=== PATIENT | female | born 1960 | race Caucasian/White ===

== ENCOUNTER 2016-03-09 12:45 | Inpatient (IN) | payer BC, OTHER ==
--- NOTE | 2016-03-09 13:25 | EDPRACDOC ---
- General Information Source: Patient - History of Present Illness Onset: YESTERDAY HPI: Pt states her R knee gave out yesterday and caused her to fall onto R side. C/o R shoulder to elbow pain, R hip and knee pain. Denies LOC, vision changes, n/v, neck or back pain, cp, sob, abd pain, loss of control bowel or bladder, wounds. Pain Severity: Reports: Moderate Injuries/Pain Location: Reports: upper extremity, lower extremity Reason for Fall: Reports: lost balance Loss of Consciousness: no loss of consciousness Modifying Factors: improves with: movement Associated Symptoms (Fall): Reports: denies symptoms <Kaitlynn Waller - Last Filed: 03/09/16 16:25> <Nura Wolf - Last Filed: 03/09/16 17:29> - General Chief Complaint: Fall Stated Complaint: FELL YESTERDAY PAIN IN RT ARM Time Seen by Provider: 03/09/16 13:16 - History of Present Illness Allergies/Adverse Reactions: Allergies No Known Allergies Allergy (Verified 03/09/16 13:16) Home Medications: Ambulatory Orders Albuterol Sulfate [Ventolin] 3 ml NEB Q2H PRN #60 nebu 12/18/15 Albuterol/Ipratropium Neb [Duoneb] 3 ml NEB RTQ6 #120 nebu 12/18/15 Budesonide [Pulmicort] 0.5 mg NEB RTBID #60 nebu 12/18/15 Diltiazem HCl [Cardizem Cd] 120 mg PO DAILY #30 cap.sr.24h 12/18/15 Furosemide [Lasix] 40 mg PO DAILY #30 tablet 12/18/15 Magnesium Oxide [Mag-Ox] 400 mg PO TIDWM #90 tablet 12/18/15 POTASSIUM CHLORIDE Tablet [K-DUR 20 mEq Tablet*] 20 meq PO TIDWM #90 tab.er.prt 12/18/15 Thiamine [Thiamine, Vitamin B-1] 100 mg PO DAILY@1200 #30 tablet 12/18/15 Lisinopril/Hydrochlorothiazide [Lisinopril-Hctz 10-12.5 mg Tab] 1 tab PO DAILY 03/09/16 Mirtazapine 15 mg PO HS 03/09/16 ED Past Medical History - History Reviewed Yes Nurses notes reviewed and agree except as marked - Patient Medical History Cardiac History: Reports: Hypertension Respiratory History: Reports: COPD GI/ History: Reports: Kidney Stones Psychological History: Denies: Depression, Substance Use Disorder Systemic History: Denies: Cancer Surgical History: Reports: Other (Repair of fractured wrist) - Family Medical History Reports: Hypertension (MOM), Diabetes (DAD), Cardiac Disorders (MOM). Denies: Cancer, Stroke - Social Medical History Smoking Status: Heavy tobacco smoker (5 or more cigarettes/day or daily pipe/ cigar) Social History: Denies: Substance Use Disorder ETOH: None Substance Abuse: None <Kaitlynn Waller - Last Filed: 03/09/16 16:25> EDM Review of Systems - Review of Systems Constitutional: No Symptoms Reported. negative: Fever, Chills, Weakness, Fatigue, Loss of Appetite Eyes: No Symptoms Reported. negative: Redness, Blurred Vision, Double Vision, Discharge, Pain, Light Sensitive, Photophobia Respiratory: No Symptoms Reported. negative: Cough, Brassy Cough, Barky Cough, Shortness of Breath, Wheezing, Hemoptysis Cardiovascular: No Symptoms Reported. negative: Chest Pain, Palpitations, Syncope, Edema, Orthopnea, PND, Skin Mottling, Cyanosis Gastrointestinal: No Symptoms Reported. negative: Pain, Constipation, Nausea, Vomiting, Diarrhea, Melena, Formula Intolerance Genitourinary: No Symptoms Reported. negative: Dysuria, Hematuria, Frequency, Discharge, Bleeding, Testicular Pain, Neurological: No Symptoms Reported. negative: Headache, Dizziness, Seizure, Numbness, Weakness, Speech Difficulty, Gait Difficulty Musculoskeletal: Arm, Elbow, Hip, Knee, Shoulder Integumentary: No Symptoms Reported. negative: Itching, Rash, Bruising, Wound Allergic/Immunologic: No Symptoms Reported. negative: Hives, Itching Hematologic: No Symptoms Reported. negative: Lymphadenopathy, Easy Bruising, Easy Bleeding Psychiatric: No Symptoms Reported. negative: Anxiety, Depression, Hallucinations, Insomnia, Suicidal <Kaitlynn Waller Phani - Last Filed: 03/09/16 16:25> - Physical Exam Constitutional: Alert Oriented to: Time, Person, Place Last recorded Vital Signs: Last Vital Signs Temp 97.4 F L 03/09/16 12:58 Pulse 107 03/09/16 12:58 Resp 16 03/09/16 12:58 BP 109/67 03/09/16 12:58 Pulse Ox 92 03/09/16 12:58 Oxygen Pulse Oxygen Saturation 92 O2 Device Room Air Oxygen Flow Rate Fraction of Inspired Oxygen ( FIO2) - HEENT Head: Normal ( normocephalic) Eye Exam: Normal (PERRL, EOMI, Sclera white) Neck: Normal (FROM, trachea at midline) - Respiratory/Cardiovascular Respiratory: Normal - CTA (BBS clear to auscultation without adventitious sounds ) Cardiovascular: Normal (RRR without murmur, gallop or rub) - GI Auscultation: Normal (NABS) Palpation: Normal (Soft,No rebound or guarding, non distended) Tenderness: Non tender, Other (no ruq or luq tenderness) Carlson's Sign: Negative - Musculoskeletal Back: Normal (Non-Tender) Extremities: Normal (Normal tone, Pulses 2+ No cyanosis or edema, FROM) - Integumentary Skin: Normal, Warm, Dry Lymphatics: Normal (no adenopathy) - Neurologic Memory Impaired: Normal Motor Function: Normal (Normal tone, Pulses 2+ No cyanosis or edema, FROM) Mood Description: Normal Perception: Normal <Kaitlynn Waller - Last Filed: 03/09/16 16:25> - Physical Exam Last recorded Vital Signs: Last Vital Signs Temp 97.4 F L 03/09/16 12:58 Pulse 87 03/09/16 16:24 Resp 18 03/09/16 16:24 BP 123/58 L 03/09/16 16:24 Pulse Ox 98 03/09/16 16:26 Oxygen Pulse Oxygen Saturation 98 O2 Device Nasal Cannula Oxygen Flow Rate Fraction of Inspired Oxygen ( 2 FIO2) <Nura Wolf - Last Filed: 03/09/16 17:29> ED Injury/Fall Exam - Physical Exam Head Injury: no evidence of injury Extremity Exam: pain with movement (R shoulder, elbow, hip and knee) Skin: Normal, Warm, Dry - [place] Coma Score Best Eye Response ([place]): (4) open spontaneously Best Verbal Response ([place]): (5) oriented Best Motor Response ([place]): (6) obeys commands [place] Total: 15 <Kaitlynn Waller - Last Filed: 03/09/16 16:25> ED Procedures - Splinting 1st splint Location: r elbow Hand-Made Type: orthoglass Splint: posterior long arm Pre-Proc Neuro Vasc Exam: normal Post-Proc Neuro Vasc Exam: normal Other Devices: Sling <Kaitlynn Waller E - Last Filed: 03/09/16 16:25> - Differential Diagnosis Contusion, Fracture, Mechanical Fall, Sprain, Strain - Results 03/09/16 15:14 03/09/16 15:14 03/09/16 15:41 Laboratory Results - last 24 hr 03/09/16 03/09/16 03/09/16 15:14 15:14 15:14 WBC 7.8 RBC 3.57 L Hgb 11.3 L Hct 32.8 L MCV 92 MCH 31.7 MCHC 34.5 RDW 14.3 Plt Count 285 MPV 6.7 L Neut % (Auto) 70.4 Lymph % (Auto) 13.1 L [place] % (Auto) 15.1 H Eos % (Auto) 0.4 Baso % (Auto) 1.0 Absolute Neuts (auto) 5.46 Absolute Lymphs (auto) 1.01 PT 10.1 INR 1.0 APTT 28.5 Sodium 119 L* Potassium 3.3 L Chloride 79 L Carbon Dioxide 30 Anion Gap 13 BUN 10 Creatinine 0.40 L Estimated GFR (MDRD) > 60 Glucose 103 H Calculated Osmolality 229 L Calcium 9.7 Total Bilirubin 0.9 AST 29 ALT 32 Alkaline Phosphatase 141 H Total Protein 7.6 Albumin 4.3 Urine Color Urine Clarity Urine pH Ur Specific [place] Urine Protein Urine Glucose (UA) Urine Ketones Urine Occult Blood Urine Nitrite Urine Bilirubin Urine Urobilinogen Ur Leukocyte Esterase Urine RBC Urine WBC Ur Epithelial Cells Hyaline Casts Urine Mucus 03/09/16 15:20 WBC RBC Hgb Hct MCV MCH MCHC RDW Plt Count MPV Neut % (Auto) Lymph % (Auto) [place] % (Auto) Eos % (Auto) Baso % (Auto) Absolute Neuts (auto) Absolute Lymphs (auto) PT INR APTT Sodium Potassium Chloride Carbon Dioxide Anion Gap BUN Creatinine Estimated GFR (MDRD) Glucose Calculated Osmolality Calcium Total Bilirubin AST ALT Alkaline Phosphatase Total Protein Albumin Urine Color Yellow Urine Clarity Sl cldy Urine pH 5.0 Ur Specific [place] 1.005 Urine Protein Neg Urine Glucose (UA) Neg Urine Ketones Neg Urine Occult Blood Neg Urine Nitrite Neg Urine Bilirubin Neg Urine Urobilinogen <2.0 Ur Leukocyte Esterase Neg Urine RBC 0-2 Urine WBC 2-5 Ur Epithelial Cells 4+ Hyaline Casts 0-2 Urine Mucus Occ - EKG EKG #1 EKG Time: 16:01 Rate: bpm: 84 [place]: Normal Rhythm: NSR Block: None ST: Nons[facility] - Diagnostic Imaging Shoulder Image interpreted by: Radiologist IMPRESSION: Mildly comminuted right humeral neck fracture extending into the head. No evidence of dislocation. Knee Image interpreted by: Radiologist IMPRESSION: Negative. Other Image interpreted by: Radiologist IMPRESSION: Minimally displaced right humeral neck fracture. Fracture through the olecranon process of the proximal ulna. Hip Image interpreted by: Radiologist IMPRESSION: Acute high right superior ramus/medial acetabular fracture. Osteopenia CT: IMPRESSION: Fracture through the right ischium near the medial acetabulum. It is difficult to confirm involvement of the acetabulum. Nondisplaced fracture also through the right inferior pubic ramus. Small amount of extraperitoneal stranding compatible with hematoma lateral to the anterior bladder. Small low-density areas within the adductor muscles of the right hip compatible with intramuscular hematomas. Elbow Image interpreted by: Radiologist IMPRESSION: Displaced olecranon process fracture. <Kaitlynn Waller E - Last Filed: 03/09/16 16:25> - Results 03/09/16 15:14 03/09/16 15:14 WBC 7.8 xk/uL (3.8-10.8) 03/09/16 15:14 RBC 3.57 xM/uL (4.20-5.40) L 03/09/16 15:14 Hgb 11.3 g/dL (12.0-16.0) L 03/09/16 15:14 Hct 32.8 % (36-47) L 03/09/16 15:14 MCV 92 fL (81-99) 03/09/16 15:14 MCH 31.7 pg (27-32) 03/09/16 15:14 MCHC 34.5 g/dl (33-36) 03/09/16 15:14 RDW 14.3 % (11.5-14.5) 03/09/16 15:14 Plt Count 285 xk/uL (130-400) 03/09/16 15:14 MPV 6.7 fL (7.4-10.4) L 03/09/16 15:14 Neut % (Auto) 70.4 % (45-76) 03/09/16 15:14 Lymph % (Auto) 13.1 % (17-44) L 03/09/16 15:14 [place] % (Auto) 15.1 % (3-10) H 03/09/16 15:14 Eos % (Auto) 0.4 % (0-5) 03/09/16 15:14 Baso % (Auto) 1.0 % (0-2) 03/09/16 15:14 Absolute Neuts (auto) 5.46 xk/uL (1.7-8.2) 03/09/16 15:14 Absolute Lymphs (auto) 1.01 xk/uL (0.65-4.75) 03/09/16 15:14 PT 10.1 SEC (9.2-11.2) 03/09/16 15:14 INR 1.0 03/09/16 15:14 APTT 28.5 SEC (22-35) 03/09/16 15:14 Sodium 119 mEq/L (137-146) L* 03/09/16 15:14 Potassium 3.3 mEq/L (3.5-5.1) L 03/09/16 15:14 Chloride 79 mEq/L (98-107) L 03/09/16 15:14 Carbon Dioxide 30 mMOL/L (22-33) 03/09/16 15:14 Anion Gap 13 mEq/L (8-16) 03/09/16 15:14 BUN 10 MG/DL (7-17) 03/09/16 15:14 Creatinine 0.40 MG/DL (0.52-1.04) L 03/09/16 15:14 Estimated GFR (MDRD) > 60 mL/min (>=60) 03/09/16 15:14 Glucose 103 MG/DL (70-99) H 03/09/16 15:14 Calculated Osmolality 229 MOs/Kg (270-290) L 03/09/16 15:14 Calcium 9.7 MG/DL (8.4-10.2) 03/09/16 15:14 Total Bilirubin 0.9 MG/DL (0.2-1.3) 03/09/16 15:14 AST 29 IU/L (14-36) 03/09/16 15:14 ALT 32 IU/L (9-52) 03/09/16 15:14 Alkaline Phosphatase 141 IU/L (38-126) H 03/09/16 15:14 Total Protein 7.6 G/DL (6.3-8.2) 03/09/16 15:14 Albumin 4.3 G/DL (3.5-5.0) 03/09/16 15:14 Urine Color Yellow 03/09/16 15:20 Urine Clarity Sl cldy 03/09/16 15:20 Urine pH 5.0 (5.0-8.0) 03/09/16 15:20 Ur Specific [place] 1.005 (1.003-1.035) 03/09/16 15:20 Urine Protein Neg (NEG/TRACE) 03/09/16 15:20 Urine Glucose (UA) Neg (NEGATIVE) 03/09/16 15:20 Urine Ketones Neg (NEGATIVE) 03/09/16 15:20 Urine Occult Blood Neg (NEG/TRACE) 03/09/16 15:20 Urine Nitrite Neg (NEGATIVE) 03/09/16 15:20 Urine Bilirubin Neg (NEGATIVE) 03/09/16 15:20 Urine Urobilinogen <2.0 MG/DL (0-1) 03/09/16 15:20 Ur Leukocyte Esterase Neg (NEGATIVE) 03/09/16 15:20 Urine RBC 0-2 (0-5) 03/09/16 15:20 Urine WBC 2-5 (0-5) 03/09/16 15:20 Ur Epithelial Cells 4+ 03/09/16 15:20 Hyaline Casts 0-2 (0-2) 03/09/16 15:20 Urine Mucus Occ (NEG/OCC) 03/09/16 15:20 Lab Results 03/09/16 03/09/16 03/09/16 15:20 15:14 15:14 WBC 7.8 RBC 3.57 L Hgb 11.3 L Hct 32.8 L MCV 92 MCH 31.7 MCHC 34.5 RDW 14.3 Plt Count 285 MPV 6.7 L Neut % (Auto) 70.4 Lymph % (Auto) 13.1 L [place] % (Auto) 15.1 H Eos % (Auto) 0.4 Baso % (Auto) 1.0 Absolute Neuts (auto) 5.46 Absolute Lymphs (auto) 1.01 PT 10.1 INR 1.0 APTT 28.5 Sodium Potassium Chloride Carbon Dioxide Anion Gap BUN Creatinine Estimated GFR (MDRD) Glucose Calculated Osmolality Calcium Total Bilirubin AST ALT Alkaline Phosphatase Total Protein Albumin Urine Color Yellow Urine Clarity Sl cldy Urine pH 5.0 Ur Specific [place] 1.005 Urine Protein Neg Urine Glucose (UA) Neg Urine Ketones Neg Urine Occult Blood Neg Urine Nitrite Neg Urine Bilirubin Neg Urine Urobilinogen <2.0 Ur Leukocyte Esterase Neg Urine RBC 0-2 Urine WBC 2-5 Ur Epithelial Cells 4+ Hyaline Casts 0-2 Urine Mucus Occ 03/09/16 15:14 WBC RBC Hgb Hct MCV MCH MCHC RDW Plt Count MPV Neut % (Auto) Lymph % (Auto) [place] % (Auto) Eos % (Auto) Baso % (Auto) Absolute Neuts (auto) Absolute Lymphs (auto) PT INR APTT Sodium 119 L* Potassium 3.3 L Chloride 79 L Carbon Dioxide 30 Anion Gap 13 BUN 10 Creatinine 0.40 L Estimated GFR (MDRD) > 60 Glucose 103 H Calculated Osmolality 229 L Calcium 9.7 Total Bilirubin 0.9 AST 29 ALT 32 Alkaline Phosphatase 141 H Total Protein 7.6 Albumin 4.3 Urine Color Urine Clarity Urine pH Ur Specific [place] Urine Protein Urine Glucose (UA) Urine Ketones Urine Occult Blood Urine Nitrite Urine Bilirubin Urine Urobilinogen Ur Leukocyte Esterase Urine RBC Urine WBC Ur Epithelial Cells Hyaline Casts Urine Mucus <Nura Wolf - Last Filed: 03/09/16 17:29> - Departure Disposition: Admit IP To This Hospital Education/Counseling Given To: Patient, Family Member Education/Counseling Given Regarding: Diagnosis, Treatment <Kaitlynn Waller - Last Filed: 03/09/16 16:25> - Departure Yes I personally saw and evaluated the patient. Decision to Admit Time: 17:29 Decision to admit date: 03/09/16 Decision to admit: from ED - Physician Consulted Orthopedics Time Called: 17:27 Provider Called: Kenneth Artis Time [place] [employer] Returned Call: 17:27 Hospitalist Time Called: 17:28 (DR CARRASQUILLO- TALK TO DR. PATIÑO) Provider Called: Luiz Patiño Time [place] [employer] Returned Call: 18:00 <Nura Wolf - Last Filed: 03/09/16 17:29> - Departure Condition: Stable Final Diagnosis: Hyponatremia, Weakness Right humeral fracture Qualifiers: Encounter type: initial encounter Humerus Location: proximal Fracture type: closed Fracture morphology: other fracture Fracture alignment: displaced Qualified Code(s): S42.291A - Other displaced fracture of upper end of right humerus, initial encounter for closed fracture Closed olecranon fracture Qualifiers: Encounter type: initial encounter Laterality: right Qualified Code(s): S52.021A - Displaced fracture of olecranon process without intraarticular extension of right ulna, initial encounter for closed fracture Fracture of right inferior pubic ramus Qualifiers: Encounter type: initial encounter Fracture type: closed Qualified Code(s): S32.591A - Other specified fracture of right pubis, initial encounter for closed fracture Right ischial fracture Qualifiers: Encounter type: initial encounter Fracture type: closed Fracture morphology: unspecified fracture morphology Fracture alignment: nondisplaced Qualified Code( s): S32.601A - Unspecified fracture of right ischium, initial encounter for closed fracture Instructions: RICE: Routine Care for Injuries Referrals: Freddy Miguel II, MD [Primary Care Provider] - One Week Prescriptions: No Action Albuterol Sulfate [Ventolin] 3 ml NEB Q2H PRN #60 nebu PRN Reason: Wheezing Albuterol/Ipratropium Neb [Duoneb] 3 ml NEB RTQ6 #120 nebu Budesonide [Pulmicort] 0.5 mg NEB RTBID #60 nebu Diltiazem HCl [Cardizem Cd] 120 mg PO DAILY #30 cap.sr.24h Furosemide [Lasix] 40 mg PO DAILY #30 tablet Magnesium Oxide [Mag-Ox] 400 mg PO TIDWM #90 tablet POTASSIUM CHLORIDE Tablet [K-DUR 20 mEq Tablet*] 20 meq PO TIDWM #90 tab.er.prt Thiamine [Thiamine, Vitamin B-1] 100 mg PO DAILY@1200 #30 tablet Lisinopril/Hydrochlorothiazide [Lisinopril-Hctz 10-12.5 mg Tab] 1 tab PO DAILY Mirtazapine 15 mg PO HS
[2016-03-09] MEDS ORDERED: OXYCODONE HCL 5 MG TABLET PO ONE (14:09)
--- NOTE | 2016-03-09 14:16 | DIRPT ---
CLINICAL DATA: Fell from standing yesterday. Right elbow pain. EXAM: RIGHT ELBOW - COMPLETE 3+ VIEW COMPARISON: None. FINDINGS: There is a fracture through the olecranon process of the right elbow. Fracture fragment is displaced 15 mm. Large joint effusion. IMPRESSION: Displaced olecranon process fracture. Electronically Signed By: Arik Lara M.D. On: 03/09/2016 14:13
--- NOTE | 2016-03-09 14:18 | DIRPT ---
CLINICAL DATA: fall yesterday. Right arm pain. EXAM: RIGHT HUMERUS - 2+ VIEW COMPARISON: None FINDINGS: There is a fracture through the right humeral neck. Minimal displacement. No subluxation or dislocation. Fracture again noted through the olecranon process at the right elbow. IMPRESSION: Minimally displaced right humeral neck fracture. Fracture through the olecranon process of the proximal ulna. Electronically Signed By: Arik Lara M.D. On: 03/09/2016 14:15
--- NOTE | 2016-03-09 14:18 | DIRPT ---
CLINICAL DATA: Acute right knee pain following fall yesterday. Initial encounter. EXAM: RIGHT KNEE - COMPLETE 4+ VIEW COMPARISON: None. FINDINGS: There is no evidence of fracture, dislocation, or joint effusion. There is no evidence of arthropathy or other focal bone abnormality. Soft tissues are unremarkable. IMPRESSION: Negative. Electronically Signed By: Olu Moya M.D. On: 03/09/2016 14:16
--- NOTE | 2016-03-09 14:21 | DIRPT ---
CLINICAL DATA: Fall, right hip pain EXAM: RIGHT HIP (WITH PELVIS) 2-3 VIEWS COMPARISON: 03/09/2016 FINDINGS: There is an acute minimally displaced high right superior ramus fracture along the medial acetabulum. Remainder of the bony pelvis appears intact. Hips are symmetric. Right hip appears located and intact. No associated hip fracture or malalignment. Bones are osteopenic. Normal SI joints and bowel gas pattern. IMPRESSION: Acute high right superior ramus/medial acetabular fracture. Osteopenia Electronically Signed By: Oliva Daniels M.D. On: 03/09/2016 14:18
--- NOTE | 2016-03-09 14:21 | DIRPT ---
CLINICAL DATA: Acute right shoulder pain following fall yesterday. Initial encounter. EXAM: RIGHT SHOULDER - 2+ VIEW COMPARISON: 12/16/2015 chest radiograph FINDINGS: A mildly comminuted fracture of the right humeral neck extending into the head noted. There is 3-4 mm anterior displacement. There is no evidence of dislocation. No focal bony lesions are present. A remote right ninth rib fracture is present. IMPRESSION: Mildly comminuted right humeral neck fracture extending into the head. No evidence of dislocation. Electronically Signed By: Olu Moya M.D. On: 03/09/2016 14:18
[2016-03-09] MEDS ORDERED: ONDANSETRON HCL 4 MG/2 ML VIAL IV ONE (14:34)
[2016-03-09] MEDS ORDERED: MORPHINE 4 MG/ML INJECTION IV ONE (14:34)
--- NOTE | 2016-03-09 15:20 | DIRPT ---
CLINICAL DATA: Acetabular fracture EXAM: CT OF THE LOWER RIGHT EXTREMITY WITHOUT CONTRAST TECHNIQUE: Multidetector CT imaging of the right hip was performed according to the standard protocol. COMPARISON: Plain films earlier today FINDINGS: There Is an essentially nondisplaced fracture through the right ischium. It is difficult to confirm definite involvement of the acetabulum. Fracture is best seen on coronal imaging. In addition, there is stranding noted in the extraperitoneal space to the right of the bladder near the ischium compatible with small hematoma. There are low-density fluid collections within the hip adductor muscles, likely small intramuscular hematomas. Fracture through the inferior pubic ramus as well.There no subluxation or dislocation. IMPRESSION: Fracture through the right ischium near the medial acetabulum. It is difficult to confirm involvement of the acetabulum. Nondisplaced fracture also through the right inferior pubic ramus. Small amount of extraperitoneal stranding compatible with hematoma lateral to the anterior bladder. Small low-density areas within the adductor muscles of the right hip compatible with intramuscular hematomas. Electronically Signed By: Arik Lara M.D. On: 03/09/2016 15:17
[2016-03-09 15:23] LABS: AUTOMATED EOSINOPHIL 0.4 % (0-5); AUTOMATED LYMPH 13.1 % (17-44); AUTOMATED MONOCYTE 15.1 % (3-10); AUTOMATED NEUTROPHIL 70.4 % (45-76); MPV 6.7 fL (7.4-10.4)
[2016-03-09 15:33] LABS: BLOOD UREA NITROGEN 10 MG/DL (7-17); CALCIUM 9.7 MG/DL (8.4-10.2); CALCULATED OSMOLALITY 229 MOs/Kg (270-290); CHLORIDE 79 mEq/L (98-107); GLUCOSE 103 MG/DL (70-99); TOTAL PROTEIN 7.6 G/DL (6.3-8.2)
[2016-03-09 15:33] LABS: LEUKOCYTES/URINE NEG (NEGATIVE); NITRITE/URINE NEG (NEGATIVE); RBC/URINE 0-2 (0-5); URINE OCCULT BLOOD NEG (NEG/TRACE)
[2016-03-09 15:37] LABS: SODIUM LEVEL 119 mEq/L (137-146)
[2016-03-09 15:38] LABS: PARTIAL THROMB. TIME 28.5 SEC (22-35)
[2016-03-09] MEDS ORDERED: NS 1,000 ML IV ONE (15:42)
[2016-03-09] MEDS ORDERED: MORPHINE 2 MG/ML INJECTION IV PRN (18:37)
--- NOTE | 2016-03-09 18:54 | HISTPHYS ---
- Chief Complaint fall with pain - History of Present Illness PRIMARY CARE PROVIDER: HPI: The patient is a 55-year-old woman with mild COPD suffered a fall yesterday, , and presents with pain today. She was walking down the steps to feed her dog when she fell down the steps onto her right side yesterday. She had to crawl because she could not walk. She stayed home yesterday hoping that she would get better, but when the pain continued today, she presented to the emergency department. She reports she does drink alcohol about 3 times per week but denies that she is an alcoholic. She states she did not drink before her fall, but reports she did drink after the fall to help with the pain. Onset: yesterday. Duration: intermittent. Location: right arm, right elbow, right pelvis. Radiation: none. Character: 10. Dull ache. Alleviated by: Nothing. Exacerbated by: Nothing. Associated Symptoms: No numbness or weakness. No headache. Generalized weakness and fatigue. Shortness of breath is minimal. Occasional wheezing. No coughing. No chest pain or palpitations. Treatments: none at home except usual medications. The patient has known mild hyponatremia, but in the emergency department her Na level was found to be 119. She was also found to have multiple fractures, including the right shoulder, right elbow, and right pelvis. - Medical History Cardiac History: Reports: Hypertension Respiratory History: Reports: COPD (does not use inhalers.) GI/ History: Reports: Kidney Stones Systemic History: Denies: Cancer Psychological History: Denies: Depression, Substance Use Disorder - Surgical History Reports: Other (Repair of fractured wrist) - Medictions/Allergies Allergies No Known Allergies Allergy (Verified 03/09/16 13:16) Current Medication List: Reviewed Home Medications Albuterol Sulfate [Ventolin] 3 ml NEB Q2H PRN #60 nebu 12/18/15 Albuterol/Ipratropium Neb [Duoneb] 3 ml NEB RTQ6 #120 nebu 12/18/15 Budesonide [Pulmicort] 0.5 mg NEB RTBID #60 nebu 12/18/15 Diltiazem HCl [Cardizem Cd] 120 mg PO DAILY #30 cap.sr.24h 12/18/15 Furosemide [Lasix] 40 mg PO DAILY #30 tablet 12/18/15 Magnesium Oxide [Mag-Ox] 400 mg PO TIDWM #90 tablet 12/18/15 POTASSIUM CHLORIDE Tablet [K-DUR 20 mEq Tablet*] 20 meq PO TIDWM #90 tab.er.prt 12/18/15 Thiamine [Thiamine, Vitamin B-1] 100 mg PO DAILY@1200 #30 tablet 12/18/15 Lisinopril/Hydrochlorothiazide [Lisinopril-Hctz 10-12.5 mg Tab] 1 tab PO DAILY 03/09/16 Mirtazapine 15 mg PO HS 03/09/16 - Family History Reports: Hypertension (MOM), Diabetes (DAD), Cardiac Disorders (MOM). Denies: Cancer, Stroke - Social History Smoking Status: Former smoker (quit 12/2015. Previously 1 ppd.) Social History: Reports: Alcohol Use. Denies: Substance Use Disorder Drinks 3 times per week. Denies that she has a problem with alcohol. - Review of Systems GENERAL: No Fever, chills, or diaphoresis. Positive for fatigue/malaise. HEENT: No nasal discharge or bleeding. No throat pain or swelling. No eye pain or eye redness. RESPIRATORY: No cough. Mild intermittent wheezing, minimal shortness of breath. CARDIOVASCULAR: No chest pain or palpitations. GI: No abdominal pain, nausea, vomiting, diarrhea, constipation, or bloody stool. NEUROLOGICAL: No headache or focal weakness. INTEGUMENT: no rashes, itching, or lesions. LYMPHATIC SYSTEM: no lymph node swelling or pain. MUSCULOSKELETAL: See HPI; otherwise, no new pain or joint swelling. GENITOURINARY: No dysuria or hematuria. ENDOCRINE: No polyuria or polydipsia. HEME: No chronic anemia, bleeding, or easy bruising. - Physical Exam Vital Signs: Initial Vitals Temperature 97.4 F L 03/09/16 12:58 Pulse Rate 107 03/09/16 12:58 Respiratory Rate 16 03/09/16 12:58 Blood Pressure 109/67 03/09/16 12:58 Pulse Oxygen Saturation 92 03/09/16 12:58 Vital Signs - 24 hr 03/09/16 03/09/16 03/09/16 12:58 16:24 16:26 Temperature 97.4 F L Pulse Rate 107 87 Respiratory 16 18 Rate Blood Pressure 109/67 123/58 L Pulse Oxygen 92 87 L 98 Saturation Weight: 45.6 kg Height: 5 feet 4 inches BMI: 17.3 - Other Exam Other Exam Findings: GENERAL: Ill-appearing, well nourished, in acute distress. HEENT: Normocephalic, atraumatic; pupils equal and round. Nares patent, without discharge or bleeding. No oropharyngeal lesions or erythema. Mucous membranes are dry. NECK: is supple, no masses, trachea midline. RESPIRATORY: Clear to auscultation bilaterally. Chest wall movements are symmetric. No use of accessory muscles to breathe. No rales, rhonchi. Wheezing noted. CARDIOVASCULAR: Normal S1, S2. Murmur 3/6 systolic. No rubs, or gallops. PMI non -displaced. Carotids: no carotid bruits. No bradycardia or tachycardia. DP pulses 2+ bilaterally. GI: soft, nontender, non-distended, normal active bowel sounds. No hepatosplenomegaly. INTEGUMENT: Clean, dry, and intact. No rashes. MUSCULOSKELETAL: No cyanosis. No clubbing. Edema: none bilaterally. RUE: bandaged in splint. tender at right shoulder and right elbow. NEUROLOGICAL: Cranial nerves 2-12 grossly intact. Motor 5/5 in left upper and lower extremity. Right upper extremity not tested due to fracture. Right lower extremity at least 3/5. Reflexes: 2+ bilaterally. Babinski: toes downgoing bilaterally. Intact Finger to nose. Sensory grossly intact to light touch. Intact rapid alternating movements bilaterally. No pronator drift. PSYCHIATRIC: Fully oriented. Normal and appropriate affect. LYMPHATIC: No cervical lymphadenopathy. No supraclavicular lymphadenopathy. - Lab Results Laboratory Results - last 24 hr 03/09/16 03/09/16 03/09/16 15:14 15:14 15:14 WBC 7.8 RBC 3.57 L Hgb 11.3 L Hct 32.8 L MCV 92 MCH 31.7 MCHC 34.5 RDW 14.3 Plt Count 285 MPV 6.7 L Neut % (Auto) 70.4 Lymph % (Auto) 13.1 L [place] % (Auto) 15.1 H Eos % (Auto) 0.4 Baso % (Auto) 1.0 Absolute Neuts (auto) 5.46 Absolute Lymphs (auto) 1.01 PT 10.1 INR 1.0 APTT 28.5 Sodium 119 L* Potassium 3.3 L Chloride 79 L Carbon Dioxide 30 Anion Gap 13 BUN 10 Creatinine 0.40 L Estimated GFR (MDRD) > 60 Glucose 103 H Calculated Osmolality 229 L Calcium 9.7 Total Bilirubin 0.9 AST 29 ALT 32 Alkaline Phosphatase 141 H Total Protein 7.6 Albumin 4.3 Urine Color Urine Clarity Urine pH Ur Specific [place] Urine Protein Urine Glucose (UA) Urine Ketones Urine Occult Blood Urine Nitrite Urine Bilirubin Urine Urobilinogen Ur Leukocyte Esterase Urine RBC Urine WBC Ur Epithelial Cells Hyaline Casts Urine Mucus 03/09/16 15:20 WBC RBC Hgb Hct MCV MCH MCHC RDW Plt Count MPV Neut % (Auto) Lymph % (Auto) [place] % (Auto) Eos % (Auto) Baso % (Auto) Absolute Neuts (auto) Absolute Lymphs (auto) PT INR APTT Sodium Potassium Chloride Carbon Dioxide Anion Gap BUN Creatinine Estimated GFR (MDRD) Glucose Calculated Osmolality Calcium Total Bilirubin AST ALT Alkaline Phosphatase Total Protein Albumin Urine Color Yellow Urine Clarity Sl cldy Urine pH 5.0 Ur Specific [place] 1.005 Urine Protein Neg Urine Glucose (UA) Neg Urine Ketones Neg Urine Occult Blood Neg Urine Nitrite Neg Urine Bilirubin Neg Urine Urobilinogen <2.0 Ur Leukocyte Esterase Neg Urine RBC 0-2 Urine WBC 2-5 Ur Epithelial Cells 4+ Hyaline Casts 0-2 Urine Mucus Occ - Diagnostic Findings EK beats per minute. Normal sinus rhythm. Nonspecific ST abnormality. Minimal ST depression in lead V4. Reviewed EKG personally. Chest x-ray, viewed personally: EXAM: PORTABLE CHEST 1 VIEW COMPARISON: Chest radiograph 12/16/2015. FINDINGS: Stable cardiac and mediastinal contours. Unchanged diffuse bilateral coarse opacities. No large area of pulmonary consolidation. No pleural effusion or pneumothorax. Re- demonstrated proximal comminuted right humerus fracture. IMPRESSION: Grossly unchanged bilateral interstitial pulmonary opacities. Comminuted proximal right humerus fracture. RIGHT Elbow x-ray: EXAM: RIGHT ELBOW - COMPLETE 3+ VIEW COMPARISON: None. FINDINGS: There is a fracture through the olecranon process of the right elbow. Fracture fragment is displaced 15 mm. Large joint effusion. IMPRESSION: Displaced olecranon process fracture. RIGHT Humerus x-ray: EXAM: RIGHT HUMERUS - 2+ VIEW COMPARISON: None FINDINGS: There is a fracture through the right humeral neck. Minimal displacement. No subluxation or dislocation. Fracture again noted through the olecranon process at the right elbow. IMPRESSION: Minimally displaced right humeral neck fracture. Fracture through the olecranon process of the proximal ulna. RIGHT Shoulder x-ray: EXAM: RIGHT SHOULDER - 2+ VIEW COMPARISON: 12/16/2015 chest radiograph FINDINGS: A mildly comminuted fracture of the right humeral neck extending into the head noted. There is 3-4 mm anterior displacement. There is no evidence of dislocation. No focal bony lesions are present. A remote right ninth rib fracture is present. IMPRESSION: Mildly comminuted right humeral neck fracture extending into the head. No evidence of dislocation. RIGHT Hip pelvis x-ray: EXAM: RIGHT HIP (WITH PELVIS) 2-3 VIEWS COMPARISON: 03/09/2016 FINDINGS: There is an acute minimally displaced high right superior ramus fracture along the medial acetabulum. Remainder of the bony pelvis appears intact. Hips are symmetric. Right hip appears located and intact. No associated hip fracture or malalignment. Bones are osteopenic. Normal SI joints and bowel gas pattern. IMPRESSION: Acute high right superior ramus/medial acetabular fracture. Osteopenia. RIGHT Knee x-ray: EXAM: RIGHT KNEE - COMPLETE 4+ VIEW COMPARISON: None. FINDINGS: There is no evidence of fracture, dislocation, or joint effusion. There is no evidence of arthropathy or other focal bone abnormality. Soft tissues are unremarkable. IMPRESSION: Negative. RIGHT Lower extremity CT: EXAM: CT OF THE LOWER RIGHT EXTREMITY WITHOUT CONTRAST TECHNIQUE: Multidetector CT imaging of the right hip was performed according to the standard protocol. COMPARISON: Plain films earlier today FINDINGS: There Is an essentially nondisplaced fracture through the right ischium. It is difficult to confirm definite involvement of the acetabulum. Fracture is best seen on coronal imaging. In addition, there is stranding noted in the extraperitoneal space to the right of the bladder near the ischium compatible with small hematoma. There are low-density fluid collections within the hip adductor muscles, likely small intramuscular hematomas. Fracture through the inferior pubic ramus as well.There no subluxation or dislocation. IMPRESSION: Fracture through the right ischium near the medial acetabulum. It is difficult to confirm involvement of the acetabulum. Nondisplaced fracture also through the right inferior pubic ramus. Small amount of extraperitoneal stranding compatible with hematoma lateral to the anterior bladder. Small low-density areas within the adductor muscles of the right hip compatible with intramuscular hematomas. - Assessment (1) Hyponatremia E87.1 - HYPO-OSMOLALITY AND HYPONATREMIA Acute Present on Admission: Yes Acute on chronic issue. Patient's sodium on admission is considerably lower than her baseline. Etiology is unclear. She does admit to drinking more water lately. She also does drink alcohol, which could be a factor here, although she denies drinking heavily. She does take hydrochlorothiazide, which is known to cause hyponatremia more so then Lasix. Plan: Hold IV fluids for now. Fluid restrict. Measure sodium levels periodically. Recommend that she stop HCTZ permanently. (2) Closed displaced fracture of surgical neck of right humerus S42.211A - UNSP DISP FX OF SURGICAL NECK OF RIGHT HUMERUS, INIT Acute Present on Admission: Yes Qualifiers: Encounter type: initial encounter Fracture morphology: F Fracture healing : F Onset yesterday, 03/08/16 after a fall. Plan: Orthopedic surgery consult. Further management per orthopedic surgeon. IV morphine p.r.n. for pain control. Will likely need physical therapy. (3) Closed fracture of right superior pubic ramus S32.511A - FRACTURE OF SUPERIOR RIM OF RIGHT PUBIS, INIT FOR CLOS FX Acute Present on Admission: Yes Qualifiers: Encounter type: E Fracture healing: F Onset yesterday, 03/08/16 after a fall. Plan: Orthopedic surgery consult. Further management per orthopedic surgeon. IV morphine p.r.n. for pain control. Will likely need physical therapy. Orthopedic surgeon to convey to PT when the patient is able to attempt ambulation. (4) Hypokalemia E87.6 - HYPOKALEMIA Acute Present on Admission: Yes Replace potassium with KCl. Check magnesium level and replace as needed. (5) Closed displaced fracture of olecranon process of right ulna without intra- articular extension S52.021A - DISP FX OF OLECRAN PRO W/O INTARTIC EXTN RIGHT ULNA, INIT Acute Present on Admission: Yes Qualifiers: Encounter type: E Fracture healing: F Onset yesterday, 03/08/16 after a fall. Plan: Orthopedic surgery consult. Further management per orthopedic surgeon. IV morphine p.r.n. for pain control. Will likely need occupational therapy. (6) Traumatic hematoma of abdominal wall S30.1XXA - CONTUSION OF ABDOMINAL WALL, INITIAL ENCOUNTER Acute Present on Admission: Yes Qualifiers: Encounter type: initial encounter Qualified Code(s): S30.1XXA - Contusion of abdominal wall, initial encounter On CT scan, the patient has a hematoma in the abdomen/pelvis that is next to the bladder. Also has hematomas in the muscles of the right hip and leg. Plan: Monitor for any bleeding. Supportive care. (7) Closed fracture of right inferior pubic ramus S32.591A - OTH FRACTURE OF RIGHT PUBIS, INIT ENCNTR FOR CLOSED FRACTURE Acute Present on Admission: Yes Qualifiers: Encounter type: E Fracture healing: F Onset yesterday, 03/08/16 after a fall. Plan: Orthopedic surgery consult. Further management per orthopedic surgeon. IV morphine p.r.n. for pain control. Will likely need physical therapy. (8) Closed fracture of right ischium S32.601A - UNSP FRACTURE OF RIGHT ISCHIUM, INIT FOR CLOS FX Acute Present on Admission: Yes Qualifiers: Encounter type: initial encounter Fracture morphology: F Fracture alignment: F Fracture healing: F Onset yesterday, 03/08/16 after a fall. Plan: Orthopedic surgery consult. Further management per orthopedic surgeon. IV morphine p.r.n. for pain control. Will likely need physical therapy. (9) COPD (chronic obstructive pulmonary disease) J44.9 - CHRONIC OBSTRUCTIVE PULMONARY DISEASE, UNSPECIFIED Acute Present on Admission: Yes Qualifiers: COPD type: C Chronic bronchitis type: C Emphysema type: E Patient with COPD, which appears to be at her baseline. It is acute in the sense that it could worsen while hospitalized and could affect ability to wean from vent if she has surgery. Plan: Inhalers of Duoneb and albuterol. O2 NC prn. Monitor lung exam. (10) Alcohol abuse F10.10 - ALCOHOL ABUSE, UNCOMPLICATED Chronic Present on Admission: Yes HISTORY from 12/2015: Continue p.r.n. Ativan. Continue thiamine and vitamins. UPDATE 02/2016: Patient denies alcohol abuse bud does admit to drinking alcohol about 3 times per week. Suspect that she may drink more often. Blood alcohol level was negative on admission. Plan: Monitor patient's status. Consider Ativan if patient develops any symptoms. Caution patient that she should stop drinking and that she should take thiamine and a multivitamin daily for the rest of her life. (11) Hypoxemia R09.02 - HYPOXEMIA Acute Present on Admission: Yes Patient did develop some hypoxemia with of PO2 of 89 in the emergency department. Plan: Oxygen by nasal cannula p.r.n.. Kevin adames. Case Care Discussed with: Patient, Nursing Staff Total Time: 60 min
--- NOTE | 2016-03-09 19:19 | DIRPT ---
CLINICAL DATA: Patient with COPD. Hypoxia. Patient status post fall with multiple fractures. EXAM: PORTABLE CHEST 1 VIEW COMPARISON: Chest radiograph 12/16/2015. FINDINGS: Stable cardiac and mediastinal contours. Unchanged diffuse bilateral coarse opacities. No large area of pulmonary consolidation. No pleural effusion or pneumothorax. Re- demonstrated proximal comminuted right humerus fracture. IMPRESSION: Grossly unchanged bilateral interstitial pulmonary opacities. Comminuted proximal right humerus fracture. Electronically Signed By: Clarence Dougherty M.D. On: 03/09/2016 19:16
[2016-03-09] MEDS ORDERED: ALBUTEROL 0.083% 3 ML NEB NEB PRN (19:29)
[2016-03-09] MEDS ORDERED: Magnesium Sulfate 1 gm/D5W 1 GM/100 ML RTU IV ONE (19:30)
[2016-03-09 19:46] LABS: ETOH-MGDL < 10 mg/dL
[2016-03-09] MEDS: POTASSIUM CHLORIDE 20 MEQ TAB PO SCH ×2 (19:56→22:17)
[2016-03-09] MEDS: OXYCODONE HCL 5 MG TABLET PO PRN (20:04)
[2016-03-09] MEDS: Albuterol/Ipratropium Neb 3 ML NEB NEB SCH (20:36)
[2016-03-10] MEDS: POTASSIUM CHLORIDE 20 MEQ TAB PO SCH ×3 (00:47→11:43)
[2016-03-10] MEDS: OXYCODONE HCL 5 MG TABLET PO PRN ×3 (00:51→19:46)
[2016-03-10] MEDS ORDERED: TEMAZEPAM 15 MG CAP PO PRN (00:52)
[2016-03-10] MEDS ORDERED: ACETAMINOPHEN 325 MG/TAB TABLET PO PRN (00:52)
[2016-03-10] MEDS ORDERED: ACETAMINOPHEN 325 MG SUPP PR PRN (00:52)
[2016-03-10] MEDS ORDERED: PROMETHAZINE 25 MG/ML VIAL IV PRN (00:52)
[2016-03-10] MEDS ORDERED: ONDANSETRON HCL 4 MG/2 ML VIAL IV PRN (00:52)
[2016-03-10] MEDS ORDERED: SIMETHICONE 80 MG TAB PO PRN (00:52)
[2016-03-10] MEDS ORDERED: BENZONATATE 100 MG PERLES PO PRN (00:52)
[2016-03-10] MEDS ORDERED: BISACODYL 5 MG TAB PO PRN (00:52)
[2016-03-10] MEDS ORDERED: SENNA CONCENTRATE TAB PO PRN (00:52)
[2016-03-10] MEDS ORDERED: Aluminum;Magnesium;Simethicone 30 ML UDC PO PRN (00:52)
[2016-03-10] MEDS ORDERED: GUAIFEN 100 MG-DEXTROMETH 10 MG PER 5 ML PO PRN (00:52)
[2016-03-10] MEDS: Albuterol/Ipratropium Neb 3 ML NEB NEB SCH ×4 (01:54→20:25)
[2016-03-10 02:42] LABS: MPV 7.2 fL (7.4-10.4)
[2016-03-10 02:44] LABS: BLOOD UREA NITROGEN 8 MG/DL (7-17); CALCIUM 8.9 MG/DL (8.4-10.2); CALCULATED OSMOLALITY 230 MOs/Kg (270-290); CHLORIDE 87 mEq/L (98-107); GLUCOSE 99 MG/DL (70-99)
[2016-03-10 02:50] LABS: SODIUM LEVEL 120 mEq/L (137-146)
--- NOTE | 2016-03-10 07:54 | PCM.ORTHCO ---
Reason for Consult: Fracture (right humerus, olecranon and pubic rami) - History of Present Illness Mrs. Briones is a 55 year old RHD female who presented to the ED yesterday with right shoulder, elbow, hip, and knee pain after a fall onto her right side while walking downstairs outside of her home on 03/08/16. Patient states that her right knee gave out on her. She had to crawl inside due to her pain and attempted to remain at home for a day, hoping the pain would resolve. However, due to the persistence of her pain she went to the ED where she was diagnosed with a right sided humerus, olecranon and pubic rami fractures. Patient was also noted to have hyponatremia and was admitted for further medical care. She does have a history of hypertension and alcoholism. She states that she was not drinking alcohol prior to her injury. Denies syncope. Denies SOB or chest pain. No nausea/vomiting. Patient is familiar to our practice and has been seen and treated for wrist fracture in the past as well. Chief Complaint: fall with pain - Past Medical and Surgical History Cardiac History: Reports: Hypertension Respiratory History: Reports: COPD (does not use inhalers.) GI/ History: Reports: Kidney Stones Systemic History: Denies: Cancer Psychological History: Reports: Alcoholism. Denies: Depression, Substance Use Disorder Past Surgical History: Reports: Other (Repair of fractured wrist) Allergies No Known Allergies Allergy (Verified 03/09/16 13:16) Home Medications Albuterol Sulfate [Ventolin] 3 ml NEB Q2H PRN #60 nebu 12/18/15 Albuterol/Ipratropium Neb [Duoneb] 3 ml NEB RTQ6 #120 nebu 12/18/15 Budesonide [Pulmicort] 0.5 mg NEB RTBID #60 nebu 12/18/15 Diltiazem HCl [Cardizem Cd] 120 mg PO DAILY #30 cap.sr.24h 12/18/15 Furosemide [Lasix] 40 mg PO DAILY #30 tablet 12/18/15 Magnesium Oxide [Mag-Ox] 400 mg PO TIDWM #90 tablet 12/18/15 POTASSIUM CHLORIDE Tablet [K-DUR 20 mEq Tablet*] 20 meq PO TIDWM #90 tab.er.prt 12/18/15 Thiamine [Thiamine, Vitamin B-1] 100 mg PO DAILY@1200 #30 tablet 12/18/15 Lisinopril/Hydrochlorothiazide [Lisinopril-Hctz 10-12.5 mg Tab] 1 tab PO DAILY 03/09/16 Mirtazapine 15 mg PO HS 03/09/16 - Social History Smoking Status: Former smoker (quit 12/2015. Previously 1 ppd.) Social History: Reports: Alcohol Use. Denies: Substance Use Disorder - Family History Reports: Hypertension (MOM), Diabetes (DAD), Cardiac Disorders (MOM). Denies: Cancer, Stroke - Review of Systems Constitutional: negative: Chills, Fever Respiratory: negative: Shortness of Breath Cardiovascular: negative: Chest Pain Gastrointestinal: negative: Nausea, Vomiting Neurological: negative: Headache, Numbness, Tingling Musculoskeletal:: Joint Pain (right shoulder, elbow, and right hip) - Physical Exam Vital Signs: Initial Vitals Temperature 97.4 F L 03/09/16 12:58 Pulse Rate 107 03/09/16 12:58 Respiratory Rate 16 03/09/16 12:58 Blood Pressure 109/67 03/09/16 12:58 Pulse Oxygen Saturation 92 03/09/16 12:58 Last Vital Signs Temp 98.1 F 03/10/16 05:45 Pulse 79 03/10/16 05:45 Resp 18 03/10/16 05:45 BP 123/52 L 03/10/16 05:45 Pulse Ox 100 03/10/16 05:45 Constitutional: No apparent distress, Alert, Well appearing Oriented to: Time, Person, Place - HEENT Head: Normal - Musculoskeletal Extremities: Pedal Pulse, Other (UE: Tenderness to right shoulder. Patient is in a long arm splint. Able to move all fingers freely. Hand appears warm and well perfused. SITLT. LE: Tenderness to right pelvis. Plantarflexion and dorsiflexion intact. SITLT.). negative: Calf Tenderness - Neurologic Memory Impaired: Normal Motor Function: Normal Cranial Nerve: Normal Cerebellar: Normal Mood Description: Normal Thought: Coherent Perception: Normal - Lab Results 03/10/16 01:52 03/10/16 01:52 - Diagnostic Findings Exam(s): [id number] RAD/DG ELBOW COMPLETE 3+V-R CLINICAL DATA: Fell from standing yesterday. Right elbow pain. EXAM: RIGHT ELBOW - COMPLETE 3+ VIEW COMPARISON: None. FINDINGS: There is a fracture through the olecranon process of the right elbow. Fracture fragment is displaced 15 mm. Large joint effusion. IMPRESSION: Displaced olecranon process fracture. Electronically Signed By: Arik Lara M.D. On: 03/09/2016 14:13 Exam(s): [id number] RAD/DG HIP COMPLETE 2+V-R CLINICAL DATA: Fall, right hip pain EXAM: RIGHT HIP (WITH PELVIS) 2-3 VIEWS COMPARISON: 03/09/2016 FINDINGS: There is an acute minimally displaced high right superior ramus fracture along the medial acetabulum. Remainder of the bony pelvis appears intact. Hips are symmetric. Right hip appears located and intact. No associated hip fracture or malalignment. Bones are osteopenic. Normal SI joints and bowel gas pattern. IMPRESSION: Acute high right superior ramus/medial acetabular fracture. Osteopenia Electronically Signed By: Oliva Daniels M.D. On: 03/09/2016 14:18 Exam(s): [id number] RAD/DG HUMERUS 2V-R CLINICAL DATA: fall yesterday. Right arm pain. EXAM: RIGHT HUMERUS - 2+ VIEW COMPARISON: None FINDINGS: There is a fracture through the right humeral neck. Minimal displacement. No subluxation or dislocation. Fracture again noted through the olecranon process at the right elbow. IMPRESSION: Minimally displaced right humeral neck fracture. Fracture through the olecranon process of the proximal ulna. Electronically Signed By: Arik Lara M.D. On: 03/09/2016 14:15 Exam(s): [id number] RAD/DG KNEE COMPLETE 4+V-R CLINICAL DATA: Acute right knee pain following fall yesterday. Initial encounter. EXAM: RIGHT KNEE - COMPLETE 4+ VIEW COMPARISON: None. FINDINGS: There is no evidence of fracture, dislocation, or joint effusion. There is no evidence of arthropathy or other focal bone abnormality. Soft tissues are unremarkable. IMPRESSION: Negative. Exam(s): [id number] RAD/DG SHOULDER 2+V-R CLINICAL DATA: Acute right shoulder pain following fall yesterday. Initial encounter. EXAM: RIGHT SHOULDER - 2+ VIEW COMPARISON: 12/16/2015 chest radiograph FINDINGS: A mildly comminuted fracture of the right humeral neck extending into the head noted. There is 3-4 mm anterior displacement. There is no evidence of dislocation. No focal bony lesions are present. A remote right ninth rib fracture is present. IMPRESSION: Mildly comminuted right humeral neck fracture extending into the head. No evidence of dislocation - Assessment/Plan (1) Closed displaced fracture of olecranon process of right ulna without intra- articular extension S52.021A - DISP FX OF OLECRAN PRO W/O INTARTIC EXTN RIGHT ULNA, INIT Acute Present on Admission: Yes initial encounter F S52.021A - Displaced fracture of olecranon process without intraarticular extension of right ulna, initial encounter for closed fracture (2) Closed displaced fracture of surgical neck of right humerus S42.211A - UNSP DISP FX OF SURGICAL NECK OF RIGHT HUMERUS, INIT Acute Present on Admission: Yes initial encounter F F (3) Closed fracture of right superior pubic ramus S32.511A - FRACTURE OF SUPERIOR RIM OF RIGHT PUBIS, INIT FOR CLOS FX Acute Present on Admission: Yes initial encounter F S32.511A - Fracture of superior rim of right pubis, initial encounter for closed fracture Case Care Discussed with: Patient Plan: Will recommend conservative, non-operative treatment of her humerus and pubic ramus fracture. WBAT with bilateral LE. Recommend transfers with PT. She should remain NWB with RUE. Continue splint. Treatment options have been discussed and recommend ORIF of right Olecranon fracture tomorrow if medically stable. Risks and benefits of surgery have been discussed with patient including but not limited to infection, need for further surgery, loss in ROM, damage to blood vessels and nerves, and risks of anesthesia. Patient agrees to proceed. Consent has been signed. Continue pain management
[2016-03-10] MEDS: MAGNESIUM OXIDE 400 MG TAB PO SCH ×2 (08:00→11:43)
[2016-03-10] MEDS: DILTIAZEM HCL 120 MG CAPSULE.CR PO SCH (08:01)
[2016-03-10] MEDS: LISINOPRIL 10 MG TAB PO SCH (08:01)
[2016-03-10] MEDS ORDERED: CEFAZOLIN 1 GM VIAL IV ONE (08:34)
[2016-03-10] MEDS ORDERED: NALOXONE 0.4 MG/ML AMPULE IV SCH (09:00)
[2016-03-10] MEDS ORDERED: MUPIROCIN 2% OINT 22 GM TUBE NAS SCH (09:00)
[2016-03-10] MEDS: BUDESONIDE 0.5 MG NEB NEB SCH ×2 (09:37→20:30)
[2016-03-10] MEDS ORDERED: LORAZEPAM 1 MG TAB PO PRN ×3 (11:30)
[2016-03-10] MEDS ORDERED: LORAZEPAM 2 MG/ML VIAL IV PRN ×3 (11:30)
--- NOTE | 2016-03-10 11:35 | GENMEDPROG ---
Subjective Note: 55-year-old female admitted to our facility with hyponatremia and multiple fractures. She appears to be a heavy drinker. Notes Reviewed: Yes Events from last night noted and discussed with Clinical Staff Current Medication List: Reviewed Currently: Denies: Cough, MICHELE, SOB, Sputum, Nausea and Vomiting, Fever/Chills, Ambulating DVT Prophylaxis: Yes - Physical Examination Vital Signs and I&O: Last Vital Signs Temp 98.6 F 03/10/16 09:38 Pulse 86 03/10/16 09:38 Resp 18 03/10/16 09:38 BP 98/66 L 03/10/16 09:38 Pulse Ox 98 03/10/16 09:38 Oxygen Pulse Oxygen Saturation 98 O2 Device Nasal Cannula Oxygen Flow Rate 3 Fraction of Inspired Oxygen ( FIO2) Intake & Output 03/07/16 03/08/16 03/09/16 03/10/16 23:59 23:59 23:59 23:59 Intake Total 1119 1018 Output Total 1725 Balance 1119 -707 Patient's weight 49.045 kg 49.555 kg General: Alert, Oriented x3, No acute distress, Well appearing, Well nourished HEENT: Normal Lymphatics: Normal (no adenopathy) Respiratory: Normal - CTA (BBS clear to auscultation without adventitious sounds ) Cardiovascular: Regular rate and rhythm (No bradycardia or tachycardia), Normal S1, No Gallops,Rubs/Murmurs, Normal S2, Good Pedal Pulses (DP pulses 2+ bilaterally) Extremities/Musculoskeletal: Normal pulses (DP pulses 2+ bilaterally), Other ( Right upper extremity in partial cast) Skin: Warm,Dry and Intact, No rashes, No significant lesion Neurological: Strength at 5/5 X4 ext (Motor 5/5 throughout.), Normal tone, Cranial nerves 3-12 NL ( 2-12 grossly intact.) Lab/DI/Studies Reviewed: Abnormal Lab Results 03/09/16 03/09/16 03/10/16 15:14 15:14 01:52 RBC 3.57 L Hgb 11.3 L Hct 32.8 L RDW MPV 6.7 L Lymph % (Auto) 13.1 L Schleicher % (Auto) 15.1 H Sodium 119 L* 120 L* Potassium 3.3 L Chloride 79 L 87 L Creatinine 0.40 L 0.40 L Glucose 103 H Calculated Osmolality 229 L 230 L Alkaline Phosphatase 141 H 03/10/16 03/10/16 01:52 08:43 RBC 3.01 L Hgb 9.5 L D Hct 27.9 L RDW 14.8 H MPV 7.2 L Lymph % (Auto) Schleicher % (Auto) Sodium 121 L* Potassium Chloride Creatinine Glucose Calculated Osmolality Alkaline Phosphatase - Assessment (1) Hyponatremia Acute E87.1 - HYPO-OSMOLALITY AND HYPONATREMIA Comment/Plan: Likely multifactorial but also related to alcohol use. Continue free water restriction. (2) Hypoxemia Acute R09.02 - HYPOXEMIA Comment/Plan: Continue O2 supplementation. (3) Alcohol abuse Chronic F10.10 - ALCOHOL ABUSE, UNCOMPLICATED Comment/Plan: Patient with long history of alcohol abuse. She presented with an alcohol level of 0. Start her on p.r.n. alcohol withdrawal prophylaxis protocol. (4) Hypokalemia Acute E87.6 - HYPOKALEMIA Comment/Plan: Replace potassium with KCl. Check magnesium level and replace as needed. (5) COPD (chronic obstructive pulmonary disease) Chronic J44.9 - CHRONIC OBSTRUCTIVE PULMONARY DISEASE, UNSPECIFIED Qualifiers: COPD type: emphysema Chronic bronchitis type: C Emphysema type: unspecified Qualified Code(s): J43.9 - Emphysema, unspecified Comment/Plan: Continue current plan. Patient does not appear to be having an exacerbation. (6) Traumatic hematoma of abdominal wall Acute S30.1XXA - CONTUSION OF ABDOMINAL WALL, INITIAL ENCOUNTER Qualifiers: Encounter type: initial encounter Qualified Code(s): S30.1XXA - Contusion of abdominal wall, initial encounter Comment/Plan: On CT scan, the patient has a hematoma in the abdomen/pelvis that is next to the bladder. Also has hematomas in the muscles of the right hip and leg. Plan: Monitor for any bleeding. Supportive care. (7) Closed fracture of right superior pubic ramus Acute S32.511A - FRACTURE OF SUPERIOR RIM OF RIGHT PUBIS, INIT FOR CLOS FX Qualifiers: Encounter type: initial encounter Fracture healing: F Qualified Code(s): S32.511A - Fracture of superior rim of right pubis, initial encounter for closed fracture Comment/Plan: Onset yesterday, 03/08/16 after a fall. Plan: Orthopedic surgery consult. Further management per orthopedic surgeon. IV morphine p.r.n. for pain control. Will likely need physical therapy. Orthopedic surgeon to convey to PT when the patient is able to attempt ambulation. (8) Fracture of right inferior pubic ramus Acute S32.591A - OTH FRACTURE OF RIGHT PUBIS, INIT ENCNTR FOR CLOSED FRACTURE Qualifiers: Encounter type: initial encounter Fracture type: closed Fracture healing : F Qualified Code(s): S32.591A - Other specified fracture of right pubis, initial encounter for closed fracture (9) Closed displaced fracture of olecranon process of right ulna without intra- articular extension Acute S52.021A - DISP FX OF OLECRAN PRO W/O INTARTIC EXTN RIGHT ULNA, INIT Qualifiers: Encounter type: initial encounter Fracture healing: F Qualified Code(s): S52.021A - Displaced fracture of olecranon process without intraarticular extension of right ulna, initial encounter for closed fracture Comment/Plan: Onset yesterday, 03/08/16 after a fall. Plan: Orthopedic surgery consult. Further management per orthopedic surgeon. IV morphine p.r.n. for pain control. Will likely need occupational therapy. (10) Closed displaced fracture of surgical neck of right humerus Acute S42.211A - UNSP DISP FX OF SURGICAL NECK OF RIGHT HUMERUS, INIT Qualifiers: Encounter type: initial encounter Fracture morphology: F Fracture healing : F Comment/Plan: Onset yesterday, 03/08/16 after a fall. Plan: Orthopedic surgery consult. Further management per orthopedic surgeon. IV morphine p.r.n. for pain control. Will likely need physical therapy. (11) Closed fracture of right ischium Acute S32.601A - UNSP FRACTURE OF RIGHT ISCHIUM, INIT FOR CLOS FX Qualifiers: Encounter type: initial encounter Fracture morphology: F Fracture alignment: F Fracture healing: F Comment/Plan: Onset yesterday, 03/08/16 after a fall. Plan: Orthopedic surgery consult. Further management per orthopedic surgeon. IV morphine p.r.n. for pain control. Will likely need physical therapy. - Plan Continue management of fractures per Orthopedic surgery. Continue fluid restriction with water restriction and monitor results of treatment. Will consult home health care social worker patient may need placement versus Disposition Plan: Patient states she would prefer to go home with her . Case Care Discussed with: Patient, Nursing Staff Education/Counseling Given To: Patient Education/Counseling Given Regarding: Diagnosis, Treatment, Prognosis, Follow Up , Disposition Plan Total Time: 45 minutes. Critical Care: No Couseling Time (>50% in counseling/coordination): No
[2016-03-10] MEDS: THIAMINE 100 MG TAB PO SCH (11:43)
[2016-03-10] MEDS ORDERED: Vaccine Screening Complete SCH (12:00)
[2016-03-10] MEDS ORDERED: Alcohol Withdrawal Scale Orders XX SCH (12:00)
[2016-03-10 12:41] LABS: LEUKOCYTES/URINE 2+ (NEGATIVE); NITRITE/URINE NEG (NEGATIVE); URINE OCCULT BLOOD 1+ (NEG/TRACE); WBC/URINE TNTC (0-5)
[2016-03-10] MEDS: MIRTAZAPINE 15 MG TAB PO SCH (21:01)
[2016-03-11] MEDS: Albuterol/Ipratropium Neb 3 ML NEB NEB SCH ×4 (03:07→20:27)
[2016-03-11] MEDS: LR 1,000 ML IV SCH (04:40)
[2016-03-11 07:36] LABS: BLOOD UREA NITROGEN 8 MG/DL (7-17); CALCIUM 9.1 MG/DL (8.4-10.2); CALCULATED OSMOLALITY 238 MOs/Kg (270-290); CHLORIDE 93 mEq/L (98-107); GLUCOSE 92 MG/DL (70-99)
[2016-03-11 07:45] LABS: SODIUM LEVEL 124 mEq/L (137-146)
[2016-03-11] MEDS: BUDESONIDE 0.5 MG NEB NEB SCH ×2 (07:54→20:28)
[2016-03-11] MEDS ORDERED: POTASSIUM CHLORIDE 20 MEQ TAB PO SCH (08:00)
[2016-03-11] MEDS ORDERED: CEFAZOLIN 1 GM VIAL IV ONE (08:00)
[2016-03-11] MEDS: MAGNESIUM OXIDE 400 MG TAB PO SCH (08:06)
[2016-03-11 08:21] LABS: SEG NEUTROPHIL 63 % (45-76); TOTAL CELL COUNT 100
[2016-03-11] MEDS ORDERED: DEXAMETHASONE 4 MG/ML VIAL IV ONE (10:00)
[2016-03-11] MEDS ORDERED: NEOSTIGMINE 1 MG/1 ML (1:1000) INJ 10 ML MDV IM ONE (10:00)
[2016-03-11] MEDS ORDERED: KETOROLAC TROMETH 30 MG/ML VIAL IM ONE (10:00)
[2016-03-11] MEDS ORDERED: ROCURONIUM 50 MG/5 ML VIAL IV ONE (10:00)
[2016-03-11] MEDS ORDERED: MIDAZOLAM 2 MG/2 ML VIAL IV ONE (10:00)
[2016-03-11] MEDS ORDERED: HYDROmorphone 2 MG/ML VIAL IM ONE (10:00)
[2016-03-11] MEDS ORDERED: FENTANYL 100 MCG/2 ML VIAL IV ONE (10:00)
[2016-03-11] MEDS ORDERED: ONDANSETRON HCL 4 MG/2 ML VIAL IV ONE (10:00)
[2016-03-11] MEDS ORDERED: GLYCOPYRROLATE 1 MG VIAL IM ONE (10:00)
[2016-03-11] MEDS ORDERED: PROPOFOL 200 MG/20 ML VIAL IV ONE (10:00)
[2016-03-11] MEDS: DILTIAZEM HCL 120 MG CAPSULE.CR PO SCH (10:35)
[2016-03-11] MEDS: THIAMINE 100 MG TAB PO SCH (10:35)
[2016-03-11] MEDS: LISINOPRIL 10 MG TAB PO SCH (10:35)
--- NOTE | 2016-03-11 11:20 | GENMEDPROG ---
Subjective Note: Patient with no new complaints. She seems to have Fergon she is having surgery today. She is undergoing an ORIF of the right olecranon fracture. Notes Reviewed: Yes Events from last night noted and discussed with Clinical Staff Current Medication List: Reviewed Currently: Denies: Cough, MICHELE, SOB, Sputum, Nausea and Vomiting, Fever/Chills, Ambulating DVT Prophylaxis: Yes - Physical Examination Vital Signs and I&O: Last Vital Signs Temp 98.2 F 03/11/16 09:55 Pulse 87 03/11/16 09:55 Resp 18 03/11/16 09:55 BP 103/57 L 03/11/16 09:55 Pulse Ox 93 03/11/16 09:55 Oxygen Pulse Oxygen Saturation 93 O2 Device Nasal Cannula Oxygen Flow Rate 1 Fraction of Inspired Oxygen ( FIO2) Intake & Output 03/08/16 03/09/16 03/10/16 03/11/16 23:59 23:59 23:59 23:59 Intake Total 1119 1258 832 Output Total 4300 850 Balance 1119 -1067 -18 Patient's weight 49.045 kg 49.555 kg 49.952 kg General: Alert, Oriented x3, No acute distress, Well appearing, Well nourished HEENT: Normal Lymphatics: Normal (no adenopathy) Respiratory: Normal - CTA (BBS clear to auscultation without adventitious sounds ) Cardiovascular: Regular rate and rhythm (No bradycardia or tachycardia), Normal S1, No Gallops,Rubs/Murmurs, Normal S2, Good Pedal Pulses (DP pulses 2+ bilaterally) GI: Normal bowel sounds Extremities/Musculoskeletal: Normal pulses (DP pulses 2+ bilaterally), Other ( Right upper extremity in partial cast) Skin: Warm,Dry and Intact, No rashes, No significant lesion Neurological: Strength at 5/5 X4 ext (Motor 5/5 throughout.), Normal tone, Cranial nerves 3-12 NL ( 2-12 grossly intact.) Lab/DI/Studies Reviewed: Abnormal Lab Results 03/10/16 03/10/16 03/11/16 12:00 16:40 06:31 RBC Hgb Hct MPV Lymphocytes % (Manual) Monocytes % (Manual) Sodium 122 L* 124 L* Chloride 93 L Creatinine 0.40 L Calculated Osmolality 238 L Urine Occult Blood 1+ H Ur Leukocyte Esterase 2+ H Urine RBC 10-20 H Urine WBC Tntc H Hyaline Casts 2-5 H 03/11/16 06:31 RBC 2.88 L Hgb 9.1 L Hct 26.9 L MPV 7.0 L Lymphocytes % (Manual) 15 L Monocytes % (Manual) 21 H Sodium Chloride Creatinine Calculated Osmolality Urine Occult Blood Ur Leukocyte Esterase Urine RBC Urine WBC Hyaline Casts - Assessment (1) Hyponatremia Acute E87.1 - HYPO-OSMOLALITY AND HYPONATREMIA Comment/Plan: Likely multifactorial but also related to alcohol use. Continue free water restriction. Sodium up to 124 today (2) Hypoxemia Acute R09.02 - HYPOXEMIA Comment/Plan: Continue O2 supplementation. (3) Alcohol abuse Chronic F10.10 - ALCOHOL ABUSE, UNCOMPLICATED Comment/Plan: Patient with long history of alcohol abuse. She presented with an alcohol level of 0. Start her on p.r.n. alcohol withdrawal prophylaxis protocol. (4) Hypokalemia Acute E87.6 - HYPOKALEMIA Comment/Plan: Will discontinue further potassium replacement (5) COPD (chronic obstructive pulmonary disease) Chronic J44.9 - CHRONIC OBSTRUCTIVE PULMONARY DISEASE, UNSPECIFIED Qualifiers: COPD type: emphysema Chronic bronchitis type: C Emphysema type: unspecified Qualified Code(s): J43.9 - Emphysema, unspecified Comment/Plan: Continue current plan. Patient does not appear to be having an exacerbation. (6) Traumatic hematoma of abdominal wall Acute S30.1XXA - CONTUSION OF ABDOMINAL WALL, INITIAL ENCOUNTER Qualifiers: Encounter type: initial encounter Qualified Code(s): S30.1XXA - Contusion of abdominal wall, initial encounter Comment/Plan: On CT scan, the patient has a hematoma in the abdomen/pelvis that is next to the bladder. Also has hematomas in the muscles of the right hip and leg. Plan: Monitor for any bleeding. Supportive care. (7) Closed fracture of right superior pubic ramus Acute S32.511A - FRACTURE OF SUPERIOR RIM OF RIGHT PUBIS, INIT FOR CLOS FX Qualifiers: Encounter type: initial encounter Fracture healing: F Qualified Code(s): S32.511A - Fracture of superior rim of right pubis, initial encounter for closed fracture Comment/Plan: Onset yesterday, 03/08/16 after a fall. Plan: Orthopedic surgery consult. Further management per orthopedic surgeon. IV morphine p.r.n. for pain control. Will likely need physical therapy. Orthopedic surgeon to convey to PT when the patient is able to attempt ambulation. (8) Fracture of right inferior pubic ramus Acute S32.591A - OTH FRACTURE OF RIGHT PUBIS, INIT ENCNTR FOR CLOSED FRACTURE Qualifiers: Encounter type: initial encounter Fracture type: closed Fracture healing : F Qualified Code(s): S32.591A - Other specified fracture of right pubis, initial encounter for closed fracture (9) Closed displaced fracture of olecranon process of right ulna without intra- articular extension Acute S52.021A - DISP FX OF OLECRAN PRO W/O INTARTIC EXTN RIGHT ULNA, INIT Qualifiers: Encounter type: initial encounter Fracture healing: F Qualified Code(s): S52.021A - Displaced fracture of olecranon process without intraarticular extension of right ulna, initial encounter for closed fracture Comment/Plan: For ORIF today in the operating room. (10) Closed displaced fracture of surgical neck of right humerus Acute S42.211A - UNSP DISP FX OF SURGICAL NECK OF RIGHT HUMERUS, INIT Qualifiers: Encounter type: initial encounter Fracture morphology: F Fracture healing : F Comment/Plan: Onset yesterday, 03/08/16 after a fall. Plan: Orthopedic surgery consult. Further management per orthopedic surgeon. IV morphine p.r.n. for pain control. Will likely need physical therapy. (11) Closed fracture of right ischium Acute S32.601A - UNSP FRACTURE OF RIGHT ISCHIUM, INIT FOR CLOS FX Qualifiers: Encounter type: initial encounter Fracture morphology: F Fracture alignment: F Fracture healing: F Comment/Plan: Onset yesterday, 03/08/16 after a fall. Plan: Orthopedic surgery consult. Further management per orthopedic surgeon. IV morphine p.r.n. for pain control. Will likely need physical therapy. - Plan Continue management of fractures per Orthopedic surgery. Continue fluid restriction with water restriction and monitor results of treatment. Will consult licensed clinical social worker patient may need placement versus home with supervision? . Disposition Plan: Patient states she would prefer to go home with her . Case Care Discussed with: Patient, Nursing Staff Education/Counseling Given To: Patient Education/Counseling Given Regarding: Diagnosis, Treatment, Prognosis, Follow Up Total Time: 45 min Critical Care: No Couseling Time (>50% in counseling/coordination): No
[2016-03-11] MEDS ORDERED: hydrALAZINE 20 MG/ML VIAL IV PRN (11:44)
[2016-03-11] MEDS ORDERED: FENTANYL 100 MCG/2 ML VIAL IV PRN ×2 (11:44)
[2016-03-11] MEDS ORDERED: MEPERIDINE 25 MG/ML TUBEX IV PRN (11:44)
[2016-03-11] MEDS ORDERED: ONDANSETRON HCL 4 MG ODT TAB PO PRN (11:44)
[2016-03-11] MEDS ORDERED: PROMETHAZINE 25 MG/ML VIAL IV PRN ×2 (11:44)
[2016-03-11] MEDS ORDERED: LABETALOL 20 MG/4 ML SYRINGE IV PRN (11:44)
[2016-03-11] MEDS ORDERED: HYDROmorphone 1 MG INJECTION IV PRN ×2 (11:44)
[2016-03-11] MEDS ORDERED: ONDANSETRON HCL 4 MG/2 ML VIAL IV PRN (11:44)
--- NOTE | 2016-03-11 11:45 | SC.ANESPOS ---
[id number], Hemodynamically Stable, Pain Control Adequate Phase I & II Recovery Complete: Yes Apparent Anesthesia Complication: No : N - Vital Signs Blood Pressure: 103/57 Pulse: 87 Resp Rate: 18 O2 Sat: 93 Temp: 98.2 F
--- NOTE | 2016-03-11 11:46 | HIM.ANES ---
Anesthesia Evaluation & Plan - Focused Review of Systems Now: No Cardiac History: Yes: Hx Hypertension No: Hx Cardiac Disorders HEENT: Yes: Hx Vision Problem (Wears glasses), Other HEENT Problems Respiratory: Yes: Hx Chronic Obstructive Pulmonary Disease (COPD) (does not use inhalers.), Hx Snoring Gastrointestinal: No: Hx Gastrointestinal Disorders Neurological/Musculoskeletal: No: Hx Neurological Disorders Psychological: No Hx Depression, No Hx Mental/Emotional Disorders Blood/Autoimmune: No: Hx Blood Transfusions, Hx AIDS, Hx Hepatitis (type) Smoking Status: Former smoker (quit 12/2015. Previously 1 ppd.) Past Social History: Reports: Alcohol Use. Denies: Substance Use Disorder Alcohol use: Abuse Surgical History: Yes: Other (Repair of fractured wrist) Other Surgical History: Remove kidney stone 1978 - Focused Physical Exam NPO since: midnight Mallampati: Class III Thyromental Distance: Greater than 3 Neck: Full Range of Motion Dental: Normal - no significant findings Cardiovascular/Chest: Normal Respiratory: Lungs clear Any problems with anesthesia, including nausea and vomiting?: No Any relatives with a history of Malignant Hyperthermia?: No Beta Evens given (if appropriate): N/A Other: Problem List Problem Status Onset Closed displaced fracture of olecranon process of right ulna without intra- articular extension Acute Closed displaced fracture of surgical neck of right humerus Acute Closed fracture of right inferior pubic ramus Acute Closed fracture of right ischium Acute Closed fracture of right superior pubic ramus Acute Closed olecranon fracture Acute Fracture of right inferior pubic ramus Acute Hyponatremia Acute Hypoxemia Acute Right humeral fracture Acute Right ischial fracture Acute Traumatic hematoma of abdominal wall Acute Weakness Acute COPD (chronic obstructive pulmonary disease) Chronic Anemia Acute Aspiration pneumonia Acute Dysphagia Acute Hypokalemia Acute Hypomagnesemia Acute Hyponatremia Acute PAC (premature atrial contraction) Acute Respiratory failure requiring intubation Acute Alcohol abuse Chronic Diastolic CHF Chronic PSVT (paroxysmal supraventricular tachycardia) Chronic PT/PTT/INR/ PT 10.1 SEC (9.2-11.2) 03/09/16 15:14 INR 1.0 03/09/16 15:14 APTT 28.5 SEC (22-35) 03/09/16 15:14 CBC/BMP/Other 03/11/16 06:31 03/11/16 06:31 Allergies Allergy/AdvReac Type Severity Reaction Status Date / Time No Known Allergies Allergy Verified 03/09/16 13:16 Home Medications Medication Instructions Recorded Last Taken Type Albuterol Sulfate [Ventolin] 3 ml NEB Q2H PRN #60 nebu 12/18/15 Unknown Rx Albuterol/Ipratropium Neb [Duoneb] 3 ml NEB RTQ6 #120 nebu 12/18/15 Unknown Rx Budesonide [Pulmicort] 0.5 mg NEB RTBID #60 nebu 12/18/15 Unknown Rx Diltiazem HCl [Cardizem Cd] 120 mg PO DAILY #30 cap.sr.24h 12/18/15 Unknown Rx Furosemide [Lasix] 40 mg PO DAILY #30 tablet 12/18/15 Unknown Rx Lisinopril/Hydrochlorothiazide 1 tab PO DAILY 03/09/16 Unknown History [Lisinopril-Hctz 10-12.5 mg Tab] Mirtazapine 15 mg PO HS 03/09/16 Unknown History Ergocalciferol (Vitamin D2) 50,000 units PO MOWEFR 03/10/16 03/08/16 History [Vitamin D] Magnesium Oxide [Mag-Ox] 400 mg PO DAILY 03/10/16 Unknown History Potassium Chloride 20 meq PO DAILY 03/10/16 Unknown History Height and Weight Patient's height 5 ft 4 in Patient's weight 110 lb 2 oz Weight (Calculated Kilograms) 49.952 BMI 18.8 Vital Signs Temperature 98.2 F 03/11/16 11:45 Pulse Rate 87 03/11/16 11:45 Respiratory Rate 18 03/11/16 11:45 Blood Pressure 103/57 L 03/11/16 11:45 Pulse Oxygen Saturation 93 03/11/16 11:45 - Anesthetic Plan Anesthesia Type: General ASA Class: 3 -: I have examined this patient and reviewed the medical record. The patient has been assessed prior to anesthesia. Risks and benefits of anesthesia and anesthetic technique options have been discussed and all questions answered. The patient accepts the risk and desires me to proceed with the planned anesthetic.
[2016-03-11] MEDS ORDERED: BUPIVACAINE 0.5% 30 ML VIAL ONE (14:50)
[2016-03-11] MEDS ORDERED: MAGNESIUM HYDROXIDE 30 ML BOTTLE PO PRN (15:30)
--- NOTE | 2016-03-11 15:47 | HIMOP ---
DATE OF PROCEDURE: 03/11/2016 PREOPERATIVE DIAGNOSIS: Olecranon fracture, right elbow. POSTOPERATIVE DIAGNOSIS: Olecranon fracture, right elbow. OPERATION: Open reduction and internal fixation. SURGEON: Kenneth Artis MD COMPUTERIZED MILL RECORDER: Riaz Stevenson PA-C. ANESTHESIA: General. DRAINS: None. COMPLICATIONS: None. BLOOD LOSS: 5 mL. DISPOSITION: Stable to recovery. PROCEDURE IN DETAIL: The patient was taken back to the surgical suite, where general anesthesia was induced. She was turned on the left lateral decubitus position on the peg board. A bolster was attached to the arm side of the bed, but was not raised. A tourniquet was applied to the right proximal humerus. The right arm and hand were prepped distally and draped in the standard sterile fashion. The bolster was then raised to support the humerus leaving the elbow flexed to 90 degrees. A midline posterior incision was made directly over the olecranon and extending down the shaft of the ulna for several centimeters. The incision was carried down sharply through the skin and subcutaneous tissues. Fracture of hematoma was debrided. The distal humerus could be visualized through the fracture and was noted to be in good condition. An open reduction was then performed and provisionally held with a large tenaculum. The guidewire [place] 6.5 cannulated screw was then inserted in an antegrade fashion from the tip of the olecranon down the shaft of the ulna. Good position of the guidewire was confirmed on AP and lateral mini C-arm images. Length measurement was taken for the screw and was felt to be 110 millimeters. The guidewire was removed. A 2.0 drill bit was used to drill across the shaft of the proximal ulna posteriorly several centimeters distal to the fracture through which an 18-gauge wire was inserted for the tension band and this was placed transversely across the ulna. A 110 millimeters 6.5 cannulated screw with a washer was then inserted over the guidewire. As it got close to the bone, the tension band was wrapped under the washer. The screw was then tightened and then the tension band was tightened with the wire best worker. Good position of all hardware was confirmed on mini C-arm images as well as the fracture. The wire was then cut and buried in the substance of the triceps tendon. The wound was irrigated with sterile saline solution. The subcutaneous tissues were infiltrated with 0.25% plain Marcaine. The subcutaneous tissues were then closed with inverted 2-0 Vicryl sutures. [place] were placed in the skin. Sterile dressings were applied and she was then placed in a sling and swath due to her proximal humerus fracture. She was extubated and taken to the recovery room in stable condition. She tolerated the procedure well without immediate complications. [id number]
--- NOTE | 2016-03-11 17:16 | DIRPT ---
CLINICAL DATA: Postop reassessment. EXAM: PORTABLE RIGHT SHOULDER - 2+ VIEW COMPARISON: Right shoulder and humeral radiographs 03/09/2016. FINDINGS: The alignment of the comminuted fracture of the right humeral neck is unchanged. There is no evidence of dislocation. The right scapula and clavicle appear intact. Chronic pulmonary interstitial prominence and aortic atherosclerosis noted. IMPRESSION: No significant change in alignment of comminuted fracture of the right humeral neck. Electronically Signed By: Wyatt Dennis M.D. On: 03/11/2016 17:14
[2016-03-11] MEDS: CALCIUM CARBONATE + VITAMIN D 500 MG TAB PO SCH (18:18)
[2016-03-11] MEDS: Cefazolin 2gm/50 ml D5W 2 GM/50 ML RTU IV SCH (18:18)
[2016-03-11] MEDS: DOCUSATE-SENNA CONCENTRATE TAB PO SCH (20:45)
[2016-03-11] MEDS: MIRTAZAPINE 15 MG TAB PO SCH (20:45)
[2016-03-11] MEDS: OXYCODONE HCL 5 MG TABLET PO PRN (22:34)
[2016-03-12] MEDS: LR 1,000 ML IV SCH ×3 (01:32→11:29)
[2016-03-12] MEDS: Cefazolin 2gm/50 ml D5W 2 GM/50 ML RTU IV SCH ×2 (01:32→08:51)
[2016-03-12] MEDS: Albuterol/Ipratropium Neb 3 ML NEB NEB SCH ×4 (01:59→19:42)
[2016-03-12] MEDS: OXYCODONE HCL 5 MG TABLET PO PRN ×3 (03:57→12:34)
--- NOTE | 2016-03-12 06:42 | PCM.ORTHBL ---
- Subjective Post Op Day: 1 Daily Assessment - Patient: Reports: No new complaints, Awake Alert Oriented x4 , Pain is less, Tolerating Regular Diet, Afebrile, Ambulating with Physical Therapist (to begin ROM of elbow and pendulum exercises for shoulder today). Denies: Shortness of breath, Nausea, Vomiting - Objective / Physical Exam Vital Signs: Temperature: 98.2 F (03/12/16 05:00) HR: 97 (03/12/16 05:00)RR: 20 (03/12/16 05: 00) BP: 137/74 (03/12/16 05:00)Pulse Ox: 96 (03/12/16 05:00) General: Alert, Oriented x3, Cooperative, No acute distress, Well appearing Musculoskeletal / Extremities: 2 plus Radial Pulse, Dressing Clean/Dry/Intact, Other (Able to move all fingers freely. SITLT.) Neurological: Sensation to light touch intact - Assessment and Plan (1) Closed displaced fracture of olecranon process of right ulna without intra- articular extension Acute S52.021A - DISP FX OF OLECRAN PRO W/O INTARTIC EXTN RIGHT ULNA, INIT Present on Admission: Yes initial encounter S52.021A - Displaced fracture of olecranon process without intraarticular extension of right ulna, initial encounter for closed fracture (2) Closed displaced fracture of surgical neck of right humerus Acute S42.211A - UNSP DISP FX OF SURGICAL NECK OF RIGHT HUMERUS, INIT Present on Admission: Yes initial encounter (3) Closed fracture of right superior pubic ramus Acute S32.511A - FRACTURE OF SUPERIOR RIM OF RIGHT PUBIS, INIT FOR CLOS FX Present on Admission: Yes initial encounter S32.511A - Fracture of superior rim of right pubis, initial encounter for closed fracture Plan: POD#1 s/p ORIF of right olecranon PT/WBAT bilateral LE, NWB RUE. OK for pendulum exercises of right shoulder and ROM of elbow with PT Continue pain management D/C planning.
[2016-03-12 07:20] LABS: AUTOMATED BASOPHIL 0.3 % (0-2); AUTOMATED EOSINOPHIL 0.1 % (0-5); AUTOMATED LYMPH 11.7 % (17-44); AUTOMATED NEUTROPHIL 69.9 % (45-76)
[2016-03-12 07:32] LABS: BLOOD UREA NITROGEN 5 MG/DL (7-17); CALCIUM 8.8 MG/DL (8.4-10.2); CALCULATED OSMOLALITY 237 MOs/Kg (270-290); CHLORIDE 94 mEq/L (98-107); GLUCOSE 103 MG/DL (70-99)
[2016-03-12 07:39] LABS: SODIUM LEVEL 124 mEq/L (137-146)
[2016-03-12] MEDS: BUDESONIDE 0.5 MG NEB NEB SCH ×2 (08:44→19:44)
[2016-03-12] MEDS: MAGNESIUM OXIDE 400 MG TAB PO SCH (08:50)
[2016-03-12] MEDS: DILTIAZEM HCL 120 MG CAPSULE.CR PO SCH (08:50)
[2016-03-12] MEDS: DOCUSATE-SENNA CONCENTRATE TAB PO SCH ×2 (08:51→22:02)
[2016-03-12] MEDS: LISINOPRIL 10 MG TAB PO SCH (08:51)
[2016-03-12] MEDS: THIAMINE 100 MG TAB PO SCH (12:35)
[2016-03-12] MEDS: VITAMINS, MULTIPLE CAP PO SCH (12:35)
[2016-03-12] MEDS: CALCIUM CARBONATE + VITAMIN D 500 MG TAB PO SCH ×2 (12:35→17:45)
[2016-03-12] MEDS: NS 1,000 ML IV SCH ×2 (12:39→21:28)
--- NOTE | 2016-03-12 13:13 | GENMEDPROG ---
Chief Complaint: Multiple fractures, alcohol abuse Subjective Note: Working with physical therapy this morning. She is awake and alert and comfortable appearing. She has no acute complaints. Notes Reviewed: Yes Events from last night noted and discussed with Clinical Staff Current Medication List: Reviewed Currently: Denies: Cough, MICHELE, SOB, Sputum, Nausea and Vomiting, Fever/Chills, Ambulating DVT Prophylaxis: Yes - Physical Examination Vital Signs and I&O: Last Vital Signs Temp 98.3 F 03/12/16 10:00 Pulse 111 03/12/16 10:00 Resp 18 03/12/16 10:00 BP 122/90 03/12/16 10:00 Pulse Ox 95 03/12/16 10:00 Oxygen Pulse Oxygen Saturation 95 O2 Device Nasal Cannula Oxygen Flow Rate 2 Fraction of Inspired Oxygen ( FIO2) Intake & Output 03/10/16 03/11/16 03/12/16 03/13/16 06:59 06:59 06:59 06:59 Intake Total 2016 222 6081 240 Output Total 1527 9390 2805 200 Balance 554 -977 -772 40 Patient's weight 49.555 kg 49.952 kg 50.349 kg General: Alert, Oriented x3, Cooperative, No acute distress, Well appearing HEENT: EOMI (Sclera white) Neck: Normal Trachea alignment, Normal inspection Respiratory: Normal - CTA (Clear to auscultation blaterally,no wheezing,rales, rhonchi.No use of accessory muscles) Cardiovascular: Regular rate, No Gallops,Rubs/Murmurs GI: Normal bowel sounds, Soft, Non tender (non distended) Extremities/Musculoskeletal: Other (Normal Tone). negative: Edema, Cyanosis Lab/DI/Studies Reviewed: Laboratory Tests 12/10/15 12/10/15 12/11/15 15:33 17:10 04:00 WBC Hgb Hct pH 7.180 L* 7.410 pCO2 72.0 H* 39.0 pO2 104.0 H 94.0 Sodium 125 L Potassium 2.9 L D BUN 5 L Creatinine 0.50 L Estimated GFR (MDRD) > 60 12/11/15 03/11/16 03/12/16 04:00 06:31 06:48 WBC 11.3 H Hgb 10.3 L Hct pH pCO2 pO2 Sodium 124 L* 124 L* Potassium BUN 5 L Creatinine 0.40 L Estimated GFR (MDRD) 03/12/16 06:48 WBC 13.4 H Hgb 8.1 L D Hct 24.8 L pH pCO2 pO2 Sodium Potassium BUN Creatinine Estimated GFR (MDRD) - Assessment (1) Closed displaced fracture of olecranon process of right ulna without intra- articular extension Acute S52.021A - DISP FX OF OLECRAN PRO W/O INTARTIC EXTN RIGHT ULNA, INIT Qualifiers: Encounter type: initial encounter Qualified Code(s): S52.021A - Displaced fracture of olecranon process without intraarticular extension of right ulna, initial encounter for closed fracture Comment/Plan: Status post or if in the operating room by Orthopedic surgery on March 11. Tolerated well, currently participating in physical therapy. (2) Closed displaced fracture of surgical neck of right humerus Acute S42.211A - UNSP DISP FX OF SURGICAL NECK OF RIGHT HUMERUS, INIT Qualifiers: Encounter type: initial encounter Comment/Plan: Onset 03/08/16 after a fall. Plan: Orthopedic surgery consult. Further management per orthopedic surgeon. IV morphine p.r.n. for pain control. Will likely need physical therapy. (3) Hyponatremia Acute E87.1 - HYPO-OSMOLALITY AND HYPONATREMIA Comment/Plan: Likely multifactorial but also related to alcohol use. Continue free water restriction and IV normal saline infusion. Sodium up to 124 today and stable for the last 24 hours. Continue this therapy, recheck renal function and sodium levels in the morning. (4) Weakness Acute R53.1 - WEAKNESS Comment/Plan: Physical therapy has been consulted. (5) COPD (chronic obstructive pulmonary disease) Chronic J44.9 - CHRONIC OBSTRUCTIVE PULMONARY DISEASE, UNSPECIFIED Qualifiers: COPD type: emphysema Emphysema type: unspecified Qualified Code(s): J43.9 - Emphysema, unspecified Comment/Plan: Continue current plan. Patient does not appear to be having an exacerbation. (6) Alcohol abuse Chronic F10.10 - ALCOHOL ABUSE, UNCOMPLICATED Comment/Plan: Patient with long history of alcohol abuse. She presented with an alcohol level of 0. Start her on p.r.n. alcohol withdrawal prophylaxis protocol. (7) Diastolic CHF Chronic I50.30 - UNSPECIFIED DIASTOLIC (CONGESTIVE) HEART FAILURE Qualifiers: Congestive heart failure chronicity: acute on chronic Qualified Code(s): I50.33 - Acute on chronic diastolic (congestive) heart failure Comment/Plan: Patient has been on Lasix in the past, however will need to be cautious with this medication due to her hyponatremia. No signs of acute exacerbation of her heart failure.
[2016-03-12] MEDS ORDERED: CHAPSTICK LIP BALM ONE (19:32)
[2016-03-12] MEDS: MIRTAZAPINE 15 MG TAB PO SCH (22:02)
[2016-03-13] MEDS: Albuterol/Ipratropium Neb 3 ML NEB NEB SCH ×4 (02:43→20:28)
[2016-03-13] MEDS: NS 1,000 ML IV SCH ×5 (05:09→20:43)
[2016-03-13] MEDS: OXYCODONE HCL 5 MG TABLET PO PRN ×2 (06:01→20:43)
--- NOTE | 2016-03-13 06:58 | PCM.ORTHBL ---
- Subjective Post Op Day: 2 Daily Assessment - Patient: Reports: No new complaints, Awake Alert Oriented x4 , Pain is less, Tolerating Regular Diet, Afebrile, Ambulating with Physical Therapist, Other (denies chest pain). Denies: Shortness of breath (although she does report some wheezing), Nausea, Vomiting - Objective / Physical Exam Vital Signs: Temperature: 98.7 F (03/13/16 06:15) HR: 90 (03/13/16 06:15)RR: 18 (03/13/16 06: 15) BP: 114/54 (03/13/16 06:15)Pulse Ox: 94 (03/13/16 06:15) General: Alert, Oriented x3, Cooperative, No acute distress, Well appearing Musculoskeletal / Extremities: 2 plus Radial Pulse, Dressing Clean/Dry/Intact Neurological: Sensation to light touch intact (UE and LE), Other (Able to move all fingers freely without pain) - Assessment and Plan (1) Closed displaced fracture of olecranon process of right ulna without intra- articular extension Acute S52.021A - DISP FX OF OLECRAN PRO W/O INTARTIC EXTN RIGHT ULNA, INIT Present on Admission: Yes initial encounter S52.021A - Displaced fracture of olecranon process without intraarticular extension of right ulna, initial encounter for closed fracture (2) Closed displaced fracture of surgical neck of right humerus Acute S42.211A - UNSP DISP FX OF SURGICAL NECK OF RIGHT HUMERUS, INIT Present on Admission: Yes initial encounter (3) Closed fracture of right superior pubic ramus Acute S32.511A - FRACTURE OF SUPERIOR RIM OF RIGHT PUBIS, INIT FOR CLOS FX Present on Admission: Yes initial encounter S32.511A - Fracture of superior rim of right pubis, initial encounter for closed fracture Plan: s/p ORIF right olecranon PT/NWB RUE; WBAT with bilateral LE. OK for pendulum exercises of right shoulder and elbow ROM with PT. Otherwise to remain in sling RUE Continue pain management D/C planning. Awaiting insurance verification for possible SNF/rehab.
[2016-03-13] MEDS: BUDESONIDE 0.5 MG NEB NEB SCH ×2 (07:32→20:33)
[2016-03-13 08:03] LABS: MPV 7.3 fL (7.4-10.4)
[2016-03-13] MEDS: DILTIAZEM HCL 120 MG CAPSULE.CR PO SCH (08:52)
[2016-03-13] MEDS: LISINOPRIL 10 MG TAB PO SCH (08:52)
[2016-03-13 08:53] LABS: BLOOD UREA NITROGEN 4 MG/DL (7-17); CALCIUM 8.5 MG/DL (8.4-10.2); CALCULATED OSMOLALITY 237 MOs/Kg (270-290); CHLORIDE 94 mEq/L (98-107); GLUCOSE 95 mg/dL (70-99)
[2016-03-13] MEDS: MAGNESIUM OXIDE 400 MG TAB PO SCH (08:53)
[2016-03-13] MEDS: DOCUSATE-SENNA CONCENTRATE TAB PO SCH ×2 (08:53→20:44)
[2016-03-13 09:09] LABS: SODIUM LEVEL 124 mEq/L (137-146)
--- NOTE | 2016-03-13 09:16 | GENMEDPROG ---
Chief Complaint: Hyponatremia, alcohol abuse, multiple fractures Subjective Note: Doing well this morning, no acute complaints. Has been working with physical therapy. Notes Reviewed: Yes: Events from last night noted and discussed with Clinical Staff Current Medication List: Reviewed Currently: Reports: Wheezing. Denies: Cough, MICHELE, SOB, Sputum, Nausea and Vomiting, Fever/Chills, Ambulating DVT Prophylaxis: Yes - Physical Examination Vital Signs and I&O: Last Vital Signs Temp 98.7 F 03/13/16 06:15 Pulse 90 03/13/16 09:09 Resp 16 03/13/16 09:09 BP 90/48 L 03/13/16 09:09 Pulse Ox 94 03/13/16 09:09 Oxygen Pulse Oxygen Saturation 94 O2 Device Nasal Cannula Oxygen Flow Rate 3.5 Fraction of Inspired Oxygen ( FIO2) Intake & Output 03/11/16 03/12/16 03/13/16 03/14/16 06:59 06:59 06:59 06:59 Intake Total 606 2381 5416 360 Output Total 1450 2805 2750 Balance -844 -424 2666 360 Patient's weight 49.952 kg 50.349 kg 51.262 kg General: Alert, Oriented x3, Cooperative, No acute distress, Well appearing Respiratory: Diminished, Tachypnea, Wheezes. negative: Accessory Muscle Use, Rhonchi Cardiovascular: Regular rate, No Gallops,Rubs/Murmurs GI: Normal bowel sounds, Soft, Non tender (non distended) Extremities/Musculoskeletal: Other (Normal Tone). negative: Edema, Cyanosis Skin: No rashes, No significant lesion Lab/DI/Studies Reviewed: Laboratory Tests 03/12/16 03/13/16 03/13/16 06:48 06:37 06:37 WBC 12.8 H Hgb 8.1 L D 8.2 L Sodium 124 L* Potassium 4.2 Creatinine 0.30 L Estimated GFR (MDRD) > 60 - Assessment (1) Closed displaced fracture of olecranon process of right ulna without intra- articular extension Acute S52.021A - DISP FX OF OLECRAN PRO W/O INTARTIC EXTN RIGHT ULNA, INIT Qualifiers: Encounter type: initial encounter Qualified Code(s): S52.021A - Displaced fracture of olecranon process without intraarticular extension of right ulna, initial encounter for closed fracture Comment/Plan: Status post ORIF in the operating room by Orthopedic surgery on March 11. Tolerated well, currently participating in physical therapy. (2) Closed displaced fracture of surgical neck of right humerus Acute S42.211A - UNSP DISP FX OF SURGICAL NECK OF RIGHT HUMERUS, INIT Qualifiers: Encounter type: initial encounter Comment/Plan: Onset 03/08/16 after a fall. Plan: Orthopedic surgery consult. Further management per orthopedic surgeon. IV morphine p.r.n. for pain control. Will likely need physical therapy. (3) Hyponatremia Acute E87.1 - HYPO-OSMOLALITY AND HYPONATREMIA Comment/Plan: Likely multifactorial but also related to alcohol use. Today will make more aggressive the free water restriction and IV normal saline infusion. Sodium levels have been stagnant at 1:24 a.m. for the last 3 days, seems like her baseline is closer to 128/129. Discontinue hydrochlorothiazide permanently. (4) Weakness Acute R53.1 - WEAKNESS Comment/Plan: Physical therapy has been consulted. (5) COPD (chronic obstructive pulmonary disease) Chronic J44.9 - CHRONIC OBSTRUCTIVE PULMONARY DISEASE, UNSPECIFIED Qualifiers: COPD type: emphysema Emphysema type: unspecified Qualified Code(s): J43.9 - Emphysema, unspecified Comment/Plan: Continue current plan. Patient does not appear to be having an exacerbation. (6) Alcohol abuse Chronic F10.10 - ALCOHOL ABUSE, UNCOMPLICATED Comment/Plan: Patient with long history of alcohol abuse. She presented with an alcohol level of 0. Start her on p.r.n. alcohol withdrawal prophylaxis protocol. (7) Diastolic CHF Chronic I50.30 - UNSPECIFIED DIASTOLIC (CONGESTIVE) HEART FAILURE Qualifiers: Congestive heart failure chronicity: acute on chronic Qualified Code(s): I50.33 - Acute on chronic diastolic (congestive) heart failure Comment/Plan: Patient has been on Lasix in the past, however will need to be cautious with this medication due to her hyponatremia. No signs of acute exacerbation of her heart failure. - Plan Continue present care, she will be ready for discharge from the hospital likely back home with home health physical therapy once her sodium levels are improved.
[2016-03-13] MEDS: CALCIUM CARBONATE + VITAMIN D 500 MG TAB PO SCH ×2 (11:00→18:02)
[2016-03-13] MEDS: THIAMINE 100 MG TAB PO SCH (11:00)
[2016-03-13] MEDS: VITAMINS, MULTIPLE CAP PO SCH (11:00)
--- NOTE | 2016-03-13 16:30 | PCM.DCS92 ---
- Final/Secondary Discharge Diagnosis (1) Closed displaced fracture of olecranon process of right ulna without intra- articular extension Acute S52.021A - DISP FX OF OLECRAN PRO W/O INTARTIC EXTN RIGHT ULNA, INIT Present on Admission: Yes initial encounter S52.021A - Displaced fracture of olecranon process without intraarticular extension of right ulna, initial encounter for closed fracture (2) Closed displaced fracture of surgical neck of right humerus Acute S42.211A - UNSP DISP FX OF SURGICAL NECK OF RIGHT HUMERUS, INIT Present on Admission: Yes initial encounter (3) Closed fracture of right superior pubic ramus Acute S32.511A - FRACTURE OF SUPERIOR RIM OF RIGHT PUBIS, INIT FOR CLOS FX Present on Admission: Yes initial encounter S32.511A - Fracture of superior rim of right pubis, initial encounter for closed fracture Discharge Disposition: Nursing Home Facility Discharge Condition: Stable Cognitive Discharge Status: Unimpaired Fuctional Discharge Status: Walker Assistance, Post-op Weakness Physician Follow up/Referrals: Freddy Miguel II, MD [Primary Care Provider] - 03/22/16 4:10 pm Kenneth Artis MD [Staff Physician] - 03/25/16 10:15 am Home Medications/ New Prescriptions: New Lisinopril [Zestril] 10 mg PO DAILY #30 tablet Lorazepam [Ativan] 2 mg PO Q4H PRN #30 tablet PRN Reason: Withdrawal Score 10-12 Thiamine [Thiamine, Vitamin B-1] 100 mg PO DAILY@1200 #30 tablet Vitamins, Multiple [Unicap] 1 cap PO DAILY@1200 #30 capsule Continue Albuterol Sulfate [Ventolin] 3 ml NEB Q2H PRN #60 nebu PRN Reason: Wheezing Albuterol/Ipratropium Neb [Duoneb] 3 ml NEB RTQ6 #120 nebu Budesonide [Pulmicort] 0.5 mg NEB RTBID #60 nebu Diltiazem HCl [Cardizem Cd] 120 mg PO DAILY #30 cap.sr.24h Mirtazapine 15 mg PO HS Magnesium Oxide [Mag-Ox] 400 mg PO DAILY Ergocalciferol (Vitamin D2) [Vitamin D2 (ergocalciferol)] 50,000 units PO MOWEFR Changed Oxycodone Immediate Release [Oxycodone Immediate Release (OxyIR)] 5 mg PO Q4- 6H PRN #30 tab PRN Reason: Pain Discontinued Furosemide [Lasix] 40 mg PO DAILY #30 tablet Lisinopril/Hydrochlorothiazide [Lisinopril-Hctz 10-12.5 mg Tab] 1 tab PO DAILY Potassium Chloride 20 meq PO DAILY Diet at Discharge: As Tolerated, Regular Activity: Limited (NWB RUE. Sling to RUE), No Heavy Lifting, No Driving Call Office For: Worsening Symptoms, Wound is Draining Pus, Fever over 101 F, Fever over 100.5, Wound is Painful, Wound is Red, Weight Gain (see below), Pain Uncontrolled By Meds, Other (See Details) Discontinue use of:: Alcohol, All Illegal Substances, All Types of Tobacco - DC Summary Notes Hospital Course Note:: Discharge summary on patient named BRITTANIE SAHU admitted to [facility] on 03/09/16 by Luiz Be MD. Date of discharge is [03/15/16]. Afebrile. Hospital course and surgery uneventful. Progressing with PT. Continue pain management. NWB RUE. OK for pendulum exercises of right shoulder and right elbow ROM. sling and swathe to RUE. WBAT with bilateral LE. OK to remove XIMENA wrap in 1 day and can perform daily dry dressing changes as needed. To follow-up in 2 weeks or earlier as needed. Wound Care Surgical Site: Yes (right elbow) Site Description (if applicable): right elbow Dressing/Site Care (if applicable): Daily dry dressing changes as needed. Medical Equipment (Order must still be written on paper): Walker Remove Transdermal Scopalamine patch if present: YES Medication Instructions: Take Stool Softener Continue Ice Packs/Ice Machine to Operative Area: Yes Activity as Tolerated: No (WBAT bilateral LE; NWB RUE) Weight Bearing: None (RUE) Current Dressing: Other (4x4, curlex, XIMENA wrap) Dressing Care: Keep Wound Clean & Dry, No Tub Baths, Change Dressing Daily (as needed) - Physical Exam Vital Signs: Initial Vitals Temperature 97.4 F L 03/09/16 12:58 Pulse Rate 107 03/09/16 12:58 Respiratory Rate 16 03/09/16 12:58 Blood Pressure 109/67 03/09/16 12:58 Pulse Oxygen Saturation 92 03/09/16 12:58 Constitutional: No apparent distress, Alert Oriented to: Time, Person, Place - HEENT Head: Normal - Neurologic Memory Impaired: Normal Motor Function: Normal Cerebellar: Normal Mood Description: Normal Thought: Coherent Perception: Normal
[2016-03-13] MEDS: MIRTAZAPINE 15 MG TAB PO SCH (20:44)
[2016-03-14] MEDS: Albuterol/Ipratropium Neb 3 ML NEB NEB SCH ×4 (01:26→20:07)
[2016-03-14] MEDS: NS 1,000 ML IV SCH ×4 (04:41→20:56)
[2016-03-14] MEDS: OXYCODONE HCL 5 MG TABLET PO PRN ×3 (04:44→20:55)
[2016-03-14 07:16] LABS: MPV 7.2 fL (7.4-10.4)
--- NOTE | 2016-03-14 07:20 | PCM.ORTHBL ---
- Subjective Post Op Day: 3 Daily Assessment - Patient: Reports: No new complaints, Awake Alert Oriented x4 , Still having pain, Pain is less, Tolerating Regular Diet, Afebrile, Ambulating with Physical Therapist, Shortness of breath, Other (denies chest pain). Denies: Nausea, Vomiting - Objective / Physical Exam Vital Signs: Temperature: 99 F (03/14/16 05:53) HR: 100 (03/14/16 05:53)RR: 18 (03/14/16 05: 53) BP: 102/54 (03/14/16 05:53)Pulse Ox: 96 (03/14/16 05:53) General: Oriented x3, Cooperative, No acute distress, Well appearing, Other ( Patient appears drowsy.) Musculoskeletal / Extremities: 2 plus Dorsalis Pedis Pulse, Dressing Clean/Dry/ Intact (Dressing did have mild soiling at the elbow. This was changed today with 4x4 gauze, ABD, curlex, and new XIMENA wrap. Surgical site without erythema or purulent drainage. No signs of infection.), Swelling (in right hand), Other (Able to move all fingers freely. SITLT.) Neurological: Sensation to light touch intact Laboratory/Diagnostics Reviewed: 03/14/16 06:29 03/14/16 06:29 - Assessment and Plan (1) Closed displaced fracture of olecranon process of right ulna without intra- articular extension Acute S52.021A - DISP FX OF OLECRAN PRO W/O INTARTIC EXTN RIGHT ULNA, INIT Present on Admission: Yes initial encounter S52.021A - Displaced fracture of olecranon process without intraarticular extension of right ulna, initial encounter for closed fracture (2) Closed displaced fracture of surgical neck of right humerus Acute S42.211A - UNSP DISP FX OF SURGICAL NECK OF RIGHT HUMERUS, INIT Present on Admission: Yes initial encounter (3) Closed fracture of right superior pubic ramus Acute S32.511A - FRACTURE OF SUPERIOR RIM OF RIGHT PUBIS, INIT FOR CLOS FX Present on Admission: Yes initial encounter S32.511A - Fracture of superior rim of right pubis, initial encounter for closed fracture Plan: s/p ORIF right olecranon PT/WBAT bilateral LE, NWB RUE; OK for elbow ROM and pendulum exercises of right shoulder. PT has been somewhat limited by O2 sats. She does have some persistent SOB and wheezing today, although no worse per patient. Continue pain management Dressing change performed today D/C planning, recommend SNF/rehab.
[2016-03-14] MEDS: BUDESONIDE 0.5 MG NEB NEB SCH ×2 (07:40→20:16)
[2016-03-14 07:43] LABS: BLOOD UREA NITROGEN 5 MG/DL (7-17); CALCIUM 8.7 MG/DL (8.4-10.2); CALCULATED OSMOLALITY 241 MOs/Kg (270-290); CHLORIDE 96 mEq/L (98-107); GLUCOSE 89 mg/dL (70-99); SODIUM LEVEL 127 mEq/L (137-146)
[2016-03-14] MEDS: DILTIAZEM HCL 120 MG CAPSULE.CR PO SCH (08:33)
[2016-03-14] MEDS: LISINOPRIL 10 MG TAB PO SCH (08:34)
[2016-03-14] MEDS: DOCUSATE-SENNA CONCENTRATE TAB PO SCH ×2 (08:34→20:56)
[2016-03-14] MEDS: MAGNESIUM OXIDE 400 MG TAB PO SCH (08:34)
[2016-03-14] MEDS: THIAMINE 100 MG TAB PO SCH (11:47)
[2016-03-14] MEDS: VITAMINS, MULTIPLE CAP PO SCH (11:47)
[2016-03-14] MEDS: CALCIUM CARBONATE + VITAMIN D 500 MG TAB PO SCH ×2 (11:47→17:41)
--- NOTE | 2016-03-14 15:50 | GENMEDPROG ---
Chief Complaint: Hyponatremia, right arm fracture Subjective Note: Doing well today, no acute complaints. Notes Reviewed: Yes: Events from last night noted and discussed with Clinical Staff Current Medication List: Reviewed Currently: Denies: Cough, MICHELE, SOB, Sputum, Nausea and Vomiting, Fever/Chills, Ambulating DVT Prophylaxis: Yes - Physical Examination Vital Signs and I&O: Last Vital Signs Temp 98.8 F 03/14/16 14:07 Pulse 106 03/14/16 14:07 Resp 18 03/14/16 14:07 BP 126/60 03/14/16 14:07 Pulse Ox 94 03/14/16 14:07 Oxygen Pulse Oxygen Saturation 94 O2 Device Nasal Cannula Oxygen Flow Rate 3 Fraction of Inspired Oxygen ( FIO2) Intake & Output 03/12/16 03/13/16 03/14/16 03/15/16 06:59 06:59 06:59 06:59 Intake Total 2381 5416 3808 1498 Output Total 2805 2750 2950 450 Balance -424 2666 858 1048 Patient's weight 50.349 kg 51.262 kg 51.262 kg 57.153 kg General: Oriented x3, Cooperative, No acute distress, Well appearing, Other ( Patient appears drowsy.) Neck: Normal Trachea alignment, Normal inspection Respiratory: Normal - CTA (Clear to auscultation blaterally,no wheezing,rales, rhonchi.No use of accessory muscles) Cardiovascular: Regular rate, No Gallops,Rubs/Murmurs GI: Normal bowel sounds, Soft, Non tender (non distended) Neurological: Cranial Nerves (II-XII intact) Lab/DI/Studies Reviewed: Laboratory Tests 03/14/16 03/14/16 06:29 06:29 WBC 12.6 H Hgb 8.6 L Sodium 127 L BUN 5 L Creatinine 0.30 L - Assessment (1) Closed displaced fracture of olecranon process of right ulna without intra- articular extension Acute S52.021A - DISP FX OF OLECRAN PRO W/O INTARTIC EXTN RIGHT ULNA, INIT Qualifiers: Encounter type: initial encounter Qualified Code(s): S52.021A - Displaced fracture of olecranon process without intraarticular extension of right ulna, initial encounter for closed fracture Comment/Plan: Status post ORIF in the operating room by Orthopedic surgery on March 11. Tolerated well, currently participating in physical therapy. (2) Closed displaced fracture of surgical neck of right humerus Acute S42.211A - UNSP DISP FX OF SURGICAL NECK OF RIGHT HUMERUS, INIT Qualifiers: Encounter type: initial encounter Comment/Plan: Onset 03/08/16 after a fall. Plan: Orthopedic surgery consult. Further management per orthopedic surgeon. IV morphine p.r.n. for pain control. Will likely need physical therapy. (3) Hyponatremia Acute E87.1 - HYPO-OSMOLALITY AND HYPONATREMIA Comment/Plan: Likely multifactorial but also related to alcohol use. Responded well to more aggressive free water restriction and IV normal saline infusion. Sodium up to 127 today, will liberalize free water restriction slightly this morning, and recheck sodium in the morning. (4) Weakness Acute R53.1 - WEAKNESS Comment/Plan: Physical therapy has been consulted. (5) COPD (chronic obstructive pulmonary disease) Chronic J44.9 - CHRONIC OBSTRUCTIVE PULMONARY DISEASE, UNSPECIFIED Qualifiers: COPD type: emphysema Emphysema type: unspecified Qualified Code(s): J43.9 - Emphysema, unspecified Comment/Plan: Continue current plan. Patient does not appear to be having an exacerbation. (6) Alcohol abuse Chronic F10.10 - ALCOHOL ABUSE, UNCOMPLICATED Comment/Plan: Patient with long history of alcohol abuse. She presented with an alcohol level of 0. Start her on p.r.n. alcohol withdrawal prophylaxis protocol. (7) Diastolic CHF Chronic I50.30 - UNSPECIFIED DIASTOLIC (CONGESTIVE) HEART FAILURE Qualifiers: Congestive heart failure chronicity: acute on chronic Qualified Code(s): I50.33 - Acute on chronic diastolic (congestive) heart failure Comment/Plan: Patient has been on Lasix in the past, however will need to be cautious with this medication due to her hyponatremia. No signs of acute exacerbation of her heart failure.
[2016-03-14] MEDS: MIRTAZAPINE 15 MG TAB PO SCH (20:55)
[2016-03-15] MEDS: Albuterol/Ipratropium Neb 3 ML NEB NEB SCH ×3 (02:10→14:51)
[2016-03-15] MEDS: NS 1,000 ML IV SCH ×2 (05:00→11:11)
[2016-03-15] MEDS: OXYCODONE HCL 5 MG TABLET PO PRN (05:04)
[2016-03-15 06:19] VITALS: BMI 21.4
[2016-03-15 06:20] VITALS: TEMP 98.1
--- NOTE | 2016-03-15 07:02 | PCM.ORTHBL ---
- Subjective Post Op Day: 4 Daily Assessment - Patient: Reports: No new complaints, Feels better, Pain is less, Tolerating Regular Diet, Afebrile, Ambulating with Physical Therapist, Shortness of breath (no change per patient), Other (Patient is awoken upon entering room. Appears drowsy. denies chest pain). Denies: Nausea, Vomiting - Objective / Physical Exam Vital Signs: Temperature: 98.1 F (03/15/16 06:20) HR: 105 (03/15/16 06:20)RR: 18 (03/15/16 06 :20) BP: 145/75 (03/15/16 06:20)Pulse Ox: 94 (03/15/16 06:20) General: Alert, Oriented x3, Cooperative, No acute distress, Well appearing Musculoskeletal / Extremities: 2 plus Dorsalis Pedis Pulse, Dressing Clean/Dry/ Intact, Other (Able to move fingers freely.) Neurological: Sensation to light touch intact - Assessment and Plan (1) Closed displaced fracture of olecranon process of right ulna without intra- articular extension Acute S52.021A - DISP FX OF OLECRAN PRO W/O INTARTIC EXTN RIGHT ULNA, INIT Present on Admission: Yes initial encounter S52.021A - Displaced fracture of olecranon process without intraarticular extension of right ulna, initial encounter for closed fracture (2) Closed displaced fracture of surgical neck of right humerus Acute S42.211A - UNSP DISP FX OF SURGICAL NECK OF RIGHT HUMERUS, INIT Present on Admission: Yes initial encounter (3) Closed fracture of right superior pubic ramus Acute S32.511A - FRACTURE OF SUPERIOR RIM OF RIGHT PUBIS, INIT FOR CLOS FX Present on Admission: Yes initial encounter S32.511A - Fracture of superior rim of right pubis, initial encounter for closed fracture Plan: s/p ORIF right olecranon PT/OT/WBAT bilateral LE, NWB RUE; OK for pendulum exercises to right shoulder and ROM of right wrist and elbow Continue pain management D/C planning.
[2016-03-15 07:25] LABS: MPV 7.2 fL (7.4-10.4)
[2016-03-15 07:35] LABS: BLOOD UREA NITROGEN 4 MG/DL (7-17); CALCIUM 8.4 MG/DL (8.4-10.2); CALCULATED OSMOLALITY 243 MOs/Kg (270-290); CHLORIDE 99 mEq/L (98-107); GLUCOSE 83 mg/dL (70-99); SODIUM LEVEL 128 mEq/L (137-146)
[2016-03-15] MEDS: BUDESONIDE 0.5 MG NEB NEB SCH (08:21)
[2016-03-15 08:49] VITALS: BP 134/74; PULSE 108
[2016-03-15] MEDS: MAGNESIUM OXIDE 400 MG TAB PO SCH (08:49)
[2016-03-15] MEDS: LISINOPRIL 10 MG TAB PO SCH (08:49)
[2016-03-15] MEDS: DOCUSATE-SENNA CONCENTRATE TAB PO SCH (08:49)
[2016-03-15] MEDS: DILTIAZEM HCL 120 MG CAPSULE.CR PO SCH (08:49)
[2016-03-15] MEDS: VITAMINS, MULTIPLE CAP PO SCH (11:13)
[2016-03-15] MEDS: CALCIUM CARBONATE + VITAMIN D 500 MG TAB PO SCH (11:13)
[2016-03-15] MEDS: THIAMINE 100 MG TAB PO SCH (11:13)
--- NOTE | 2016-03-15 13:16 | PCM.DCS92 ---
- Final/Secondary Discharge Diagnosis (1) Closed displaced fracture of olecranon process of right ulna without intra- articular extension Acute S52.021A - DISP FX OF OLECRAN PRO W/O INTARTIC EXTN RIGHT ULNA, INIT Present on Admission: Yes initial encounter S52.021A - Displaced fracture of olecranon process without intraarticular extension of right ulna, initial encounter for closed fracture Comment: Status post ORIF in the operating room by Orthopedic surgery on March 11. Tolerated well, currently participating in physical therapy. Physical therapy recommends subacute rehab stay, this is also been approved by insurance. Patient and her were initially hoping to take her home, but I did recommend very strongly that they discharged to subacute rehab facility today, as this gives her the quickest and safest way to get back to her prior level of functioning. (2) Closed displaced fracture of surgical neck of right humerus Acute S42.211A - UNSP DISP FX OF SURGICAL NECK OF RIGHT HUMERUS, INIT Present on Admission: Yes initial encounter Comment: Onset 03/08/16 after a fall. Plan: Orthopedic surgery consult. Further management per orthopedic surgeon. IV morphine p.r.n. for pain control. Will likely need physical therapy. (3) Hyponatremia Acute E87.1 - HYPO-OSMOLALITY AND HYPONATREMIA Present on Admission: Yes Comment: Likely multifactorial but also related to alcohol use. Responded well to more aggressive free water restriction and IV normal saline infusion. Sodium is back to her pre year baseline, so can discontinue therapy. Patient should adhere to 2000 cc free water restriction on a daily basis at discharge. Her hydrochlorothiazide was discontinued. (4) Weakness Acute R53.1 - WEAKNESS Comment: Physical therapy has been consulted. (5) COPD (chronic obstructive pulmonary disease) Chronic J44.9 - CHRONIC OBSTRUCTIVE PULMONARY DISEASE, UNSPECIFIED Present on Admission: Yes emphysema unspecified J43.9 - Emphysema, unspecified Comment: Continue current plan. Patient does not appear to be having an exacerbation. (6) Alcohol abuse Chronic F10.10 - ALCOHOL ABUSE, UNCOMPLICATED Present on Admission: Yes Comment: Patient with long history of alcohol abuse. She presented with an alcohol level of 0. Start her on p.r.n. alcohol withdrawal prophylaxis protocol. (7) Diastolic CHF Chronic I50.30 - UNSPECIFIED DIASTOLIC (CONGESTIVE) HEART FAILURE acute on chronic I50.33 - Acute on chronic diastolic (congestive) heart failure Comment: Patient has been on Lasix in the past, however will need to be cautious with this medication due to her hyponatremia. No signs of acute exacerbation of her heart failure. Discharge Disposition: Subacute rehab Discharge Condition: Stable Cognitive Discharge Status: Unimpaired Fuctional Discharge Status: Walker Assistance, Wheelchair Assistance Physician Follow up/Referrals: Freddy Miguel II, MD [Primary Care Provider] - 03/22/16 4:10 pm Kenneth Artis MD [Staff Physician] - 03/25/16 10:15 am Home Medications / New Prescriptions: New Lisinopril [Zestril] 10 mg PO DAILY #30 tablet Lorazepam [Ativan] 2 mg PO Q4H PRN #30 tablet PRN Reason: Withdrawal Score 10-12 Thiamine [Thiamine, Vitamin B-1] 100 mg PO DAILY@1200 #30 tablet Vitamins, Multiple [Unicap] 1 cap PO DAILY@1200 #30 capsule Continue Albuterol Sulfate [Ventolin] 3 ml NEB Q2H PRN #60 nebu PRN Reason: Wheezing Albuterol/Ipratropium Neb [Duoneb] 3 ml NEB RTQ6 #120 nebu Budesonide [Pulmicort] 0.5 mg NEB RTBID #60 nebu Diltiazem HCl [Cardizem Cd] 120 mg PO DAILY #30 cap.sr.24h Mirtazapine 15 mg PO HS Magnesium Oxide [Mag-Ox] 400 mg PO DAILY Ergocalciferol (Vitamin D2) [Vitamin D2 (ergocalciferol)] 50,000 units PO MOWEFR Changed Oxycodone Immediate Release [Oxycodone Immediate Release (OxyIR)] 5 mg PO Q4- 6H PRN #30 tab PRN Reason: Pain Discontinued Furosemide [Lasix] 40 mg PO DAILY #30 tablet Lisinopril/Hydrochlorothiazide [Lisinopril-Hctz 10-12.5 mg Tab] 1 tab PO DAILY Potassium Chloride 20 meq PO DAILY O2 Device: Nasal Cannula Diet at Discharge: As Tolerated, Regular Activity: Limited (NWB RUE. Sling to RUE), No Heavy Lifting, No Driving Call Office For: Worsening Symptoms, Wound is Draining Pus, Fever over 101 F, Fever over 100.5, Wound is Painful, Wound is Red, Weight Gain (see below), Pain Uncontrolled By Meds, Other (See Details) Discontinue use of:: Alcohol, All Illegal Substances, All Types of Tobacco - DC Summary Notes HPI/Notes: 55-year-old woman with a history of hyponatremia, related to alcohol abuse was admitted to the hospital after traumatic fall resulting in pelvic and right humerus fracture. The right humeral fracture was repaired by Orthopedic service on March 11. She was kept in the hospital and treated for severe hyponatremia, this is now resolved and she is ready for discharge from the hospital today. She will be discharged to subacute rehab facility per Physical therapy recommendations. Discussed at the bedside with the patient and her who are in agreement with this plan. Please see the hospital problems and discharge problems above for details of the hospital course including diagnostics and treatment. The plan of care including medications, prognosis, follow-up including alarm symptoms for which medical care should be sought were reviewed with the patient and any available family members/caretakers. The patient is agreeable to discharge today, and all questions were answered by me to their satisfaction. Hospital Course Note:: Discharge summary on patient named BRITTANIE SAHU admitted to [facility] on 03/09/16 by Luiz Be MD. Date of discharge is []. Total Time: 40 Wound Care Surgical Site: Yes (right elbow) Site Description (if applicable): right elbow - Physical Exam Vital Signs: Last Vital Signs Temp 98.1 F 03/15/16 06:20 Pulse 108 03/15/16 08:49 Resp 18 03/15/16 06:20 BP 134/74 03/15/16 08:49 Pulse Ox 95 03/15/16 08:12 Oxygen Pulse Oxygen Saturation 95 O2 Device Nasal Cannula Oxygen Flow Rate 2 Fraction of Inspired Oxygen ( FIO2) Constitutional: No apparent distress, Alert, Well appearing Oriented to: Time, Person, Place Exam: is at the bedside this morning. - HEENT Head: Normal - Respiratory/Cardiovascular Respiratory: Normal - CTA (Clear to auscultation blaterally,no wheezing,rales, rhonchi.No use of accessory muscles) Cardiovascular: Normal (RRR , Normal S1, S2. No murmurs, rubs, or gallops. PMI non-displaced. Carotids: no carotid bruits. No bradycardia or tachycardia. DP pulses 2+ bilaterally.) - GI Auscultation: Normal (NABS) Palpation: Normal (Soft,No rebound or guarding, non distended) Tenderness: Non tender, Other (no ruq or luq tenderness) Carlson's Sign: Negative - Musculoskeletal Extremities: Pedal Pulse, Other (UE: Tenderness to right shoulder. Patient is in a long arm splint. Able to move all fingers freely. Hand appears warm and well perfused. SITLT. LE: Tenderness to right pelvis. Plantarflexion and dorsiflexion intact. SITLT.). negative: Calf Tenderness, Edema - Integumentary Lymphatics: Normal (no adenopathy) - Neurologic Memory Impaired: Normal Cerebellar: Normal Mood Description: Normal Thought: Coherent Perception: Normal
== END 2016-03-15 17:48 | DRG 511 ==
LOC: EDMC 12:45 → MPS3 18:32
PROVIDERS: ADMIT Internal Medicine; ATTEND Internal Medicine
PROC: 0PSK04Z Reposition Right Ulna with Internal Fixation Device, Open Approach (ICD-10-PCS; principal; 2016-03-11 12:00)
DX: S52.021A Displaced fracture of olecranon process without intraarticular extension of right ulna, initial encounter for closed fracture (principal); S32.511A Fracture of superior rim of right pubis, initial encounter for closed fracture; I11.0 Hypertensive heart disease with heart failure; S32.601A Unspecified fracture of right ischium, initial encounter for closed fracture; E87.1 Hypo-osmolality and hyponatremia; I50.30 Unspecified diastolic (congestive) heart failure; S42.211A Unspecified displaced fracture of surgical neck of right humerus, initial encounter for closed fracture; S32.591A Other specified fracture of right pubis, initial encounter for closed fracture; S70.11XA Contusion of right thigh, initial encounter; W10.8XXA Fall (on) (from) other stairs and steps, initial encounter; Y93.F9 Activity, other caregiving; Y92.9 Unspecified place or not applicable; R09.02 Hypoxemia; J44.9 Chronic obstructive pulmonary disease, unspecified; F10.10 Alcohol abuse, uncomplicated; E87.6 Hypokalemia; Z87.442 Personal history of urinary calculi; Z79.51 Long term (current) use of inhaled steroids; Z87.891 Personal history of nicotine dependence
CPT/HCPCS: 29105; 36415; 51798; 71010; 73502; 80048; 80053; 80307; 81001; 83735; 84100; 84295; 85007; 85025; 85027; 85610; 85730; 87086; 87641; 93005; 94640; 96361; 96374; 96375; 98960; 99284; J0690; J1100; J1170; J1885; J2250; J2270; J2405; J2710; J3010; J3475; J3490; J7620